=== PATIENT | female | born 1960 | race Caucasian/White ===

== ENCOUNTER 2020-04-03 11:49 | Outpatient (REF) | payer MEDICAID, SELFPAY ==
--- NOTE | 2020-04-03 11:58 | XR_ITS ---
EXAMINATION: XR FOREARM, RIGHT XR ELBOW, RIGHT XR HAND, RIGHT XR SHOULDER, RIGHT CLINICAL INFORMATION: Pain in the extremity. Anesthesia of skin. COMPARISON: None TECHNIQUE: Right shoulder, 4 views Right elbow, 3 views Right forearm, 2 views Right hand, 3 views FINDINGS: Right shoulder: Bones, joints and soft tissues have a normal.. No fracture or subluxation. No evidence of calcific tendinopathy. The visualized right lung is normal. Right elbow: Alignment is normal. Bones, joints and soft tissues have a normal appearance. No elbow joint effusion. No arthritic deformity. Incidentally noted is a small olecranon enthesophyte. Right forearm: The radius and ulna are normal. No fracture, erosion or periostitis. The soft tissues have a normal appearance. Right hand: Small osteophytes of the mildly degenerated thumb interphalangeal joint and of the fifth distal interphalangeal joint. No erosions or periostitis. Otherwise, bones, joints and soft tissues of the hand and wrist are unremarkable. XR/XR forearm RT 2V IMPRESSION: * Normal right shoulder. * Normal right elbow. * Normal right forearm. * Mild osteoarthritis. Interphalangeal joints in the right hand. No fracture or malalignment in the hand or wrist. No evidence of an inflammatory arthropathy.
--- NOTE | 2020-04-03 11:58 | XR_ITS ---
EXAMINATION: XR FOREARM, RIGHT XR ELBOW, RIGHT XR HAND, RIGHT XR SHOULDER, RIGHT CLINICAL INFORMATION: Pain in the extremity. Anesthesia of skin. COMPARISON: None TECHNIQUE: Right shoulder, 4 views Right elbow, 3 views Right forearm, 2 views Right hand, 3 views FINDINGS: Right shoulder: Bones, joints and soft tissues have a normal.. No fracture or subluxation. No evidence of calcific tendinopathy. The visualized right lung is normal. Right elbow: Alignment is normal. Bones, joints and soft tissues have a normal appearance. No elbow joint effusion. No arthritic deformity. Incidentally noted is a small olecranon enthesophyte. Right forearm: The radius and ulna are normal. No fracture, erosion or periostitis. The soft tissues have a normal appearance. Right hand: Small osteophytes of the mildly degenerated thumb interphalangeal joint and of the fifth distal interphalangeal joint. No erosions or periostitis. Otherwise, bones, joints and soft tissues of the hand and wrist are unremarkable. XR/XR elbow RT 2V IMPRESSION: * Normal right shoulder. * Normal right elbow. * Normal right forearm. * Mild osteoarthritis. Interphalangeal joints in the right hand. No fracture or malalignment in the hand or wrist. No evidence of an inflammatory arthropathy.
--- NOTE | 2020-04-03 11:59 | XR_ITS ---
EXAMINATION: XR FOREARM, RIGHT XR ELBOW, RIGHT XR HAND, RIGHT XR SHOULDER, RIGHT CLINICAL INFORMATION: Pain in the extremity. Anesthesia of skin. COMPARISON: None TECHNIQUE: Right shoulder, 4 views Right elbow, 3 views Right forearm, 2 views Right hand, 3 views FINDINGS: Right shoulder: Bones, joints and soft tissues have a normal.. No fracture or subluxation. No evidence of calcific tendinopathy. The visualized right lung is normal. Right elbow: Alignment is normal. Bones, joints and soft tissues have a normal appearance. No elbow joint effusion. No arthritic deformity. Incidentally noted is a small olecranon enthesophyte. Right forearm: The radius and ulna are normal. No fracture, erosion or periostitis. The soft tissues have a normal appearance. Right hand: Small osteophytes of the mildly degenerated thumb interphalangeal joint and of the fifth distal interphalangeal joint. No erosions or periostitis. Otherwise, bones, joints and soft tissues of the hand and wrist are unremarkable. XR/XR hand RT 2V IMPRESSION: * Normal right shoulder. * Normal right elbow. * Normal right forearm. * Mild osteoarthritis. Interphalangeal joints in the right hand. No fracture or malalignment in the hand or wrist. No evidence of an inflammatory arthropathy.
--- NOTE | 2020-04-03 12:00 | XR_ITS ---
EXAMINATION: XR FOREARM, RIGHT XR ELBOW, RIGHT XR HAND, RIGHT XR SHOULDER, RIGHT CLINICAL INFORMATION: Pain in the extremity. Anesthesia of skin. COMPARISON: None TECHNIQUE: Right shoulder, 4 views Right elbow, 3 views Right forearm, 2 views Right hand, 3 views FINDINGS: Right shoulder: Bones, joints and soft tissues have a normal.. No fracture or subluxation. No evidence of calcific tendinopathy. The visualized right lung is normal. Right elbow: Alignment is normal. Bones, joints and soft tissues have a normal appearance. No elbow joint effusion. No arthritic deformity. Incidentally noted is a small olecranon enthesophyte. Right forearm: The radius and ulna are normal. No fracture, erosion or periostitis. The soft tissues have a normal appearance. Right hand: Small osteophytes of the mildly degenerated thumb interphalangeal joint and of the fifth distal interphalangeal joint. No erosions or periostitis. Otherwise, bones, joints and soft tissues of the hand and wrist are unremarkable. XR/XR shoulder RT min 2V IMPRESSION: * Normal right shoulder. * Normal right elbow. * Normal right forearm. * Mild osteoarthritis. Interphalangeal joints in the right hand. No fracture or malalignment in the hand or wrist. No evidence of an inflammatory arthropathy.
--- NOTE | 2020-04-03 12:00 | XR_ITS ---
EXAMINATION: XR CERVICAL SPINE CLINICAL INFORMATION: Pain in right arm. Anesthesia of skin. COMPARISON: None TECHNIQUE: Cervical spine, 5 views FINDINGS: The craniocervical junction is normal. The dens is intact. The cervical vertebra have normal height and alignment. No fracture, subluxation or prevertebral soft tissue swelling. There is lack of lordotic curvature of the degenerated cervical spine. Moderate discovertebral degenerative changes of C3-C4, C4-C5, C5-C6 and C6-C7 (as manifest by narrowing of disc spaces, endplate sclerosis and osteophyte formation). There is multilevel uncovertebral joint hypertrophy, as well. The oblique views show moderate left-sided neural foraminal stenosis at C3-C4, C4-C5, C5-C6 and C6-C7. On the right, there is mild foraminal stenosis at C4-C5, and moderate foraminal stenosis at C5-C6. XR/XR cervical spine min 6V IMPRESSION: * Moderate, multilevel discovertebral degenerative change of the cervical spine, and multilevel neural foraminal stenosis. * No fracture or malalignment of the degenerated spine.
== END 2020-04-03 11:50 | disposition home or self-care (01) ==
LOC: HO.XRAY 11:49
PROVIDERS: PCP Nurse Practitioner Family; Visit Provider Nurse Practitioner Family
DX: M79.601 Pain in right arm (principal); R20.0 Anesthesia of skin
CPT/HCPCS: 72052; 73030; 73070; 73090; 73120

== ENCOUNTER 2020-07-30 18:48 | Emergency (ER) | payer MEDICAID, SELFPAY ==
--- NOTE | ~2020-07-30 | XR_ITS ---
EXAMINATION: XR CHEST CLINICAL INFORMATION: Chest pain COMPARISON: None TECHNIQUE: 2 views of the chest were obtained. FINDINGS: No significant abnormality is noted involving the heart, lungs, mediastinum, bony thorax or soft tissues. XR/XR chest 2V IMPRESSION: Unremarkable examination.
--- NOTE | ~2020-07-30 | CT_ITS ---
EXAMINATION: CT angio head neck CLINICAL INFORMATION: Neck pain. Question dissection, abscess, or aneurysm. COMPARISON: No relevant prior imaging. TECHNIQUE: Production Planning Supervisor images were obtained. A CT angiogram of the head and neck was performed in the arterial phase after the intravenous administration of 70 mL Omnipaque 350. Pre and delayed postcontrast images of the head were also obtained. MIP reconstructions were generated in multiple orientations at the acquisition workstation. Multiple three-dimensional surface rendered images and maximum intensity projection images were generated on a dedicated 3-D lab workstation. Arterial stenoses are measured in accordance with NASCET criteria or similar method if applicable. This CT examination was performed using dose optimization techniques as appropriate, including one or more of the following: Automated exposure control, iterative reconstruction, and adjustment of technique factors (mA and/or kVp) according to patient size (this includes techniques or standardized protocols for targeted exams where dose is matched to indication/reason for exam). Total exam dose-length product 2223 mGy-cm FINDINGS: Head: There is no acute intracranial hemorrhage and no abnormal extra-axial collection. Postcontrast images reveal no abnormal mass or enhancement within the intracranial compartment. No intracranial mass effect or midline shift. Lateral and third ventricles are normal. No hydrocephalus. Dhaliwal-white matter differentiation is grossly preserved and there is no evidence of acute territorial infarct. The calvarium and skull base are intact. Mastoid air cells and middle ear cavities are well aerated. There is partial opacification of the right maxillary sinus. CT angiogram neck: The aortic arch apex is normal. Origins of major aortic branches are widely patent. Common carotid arteries are normal. Small amount of eccentric plaque involves the carotid bifurcations. No stenosis of the extracranial internal carotid arteries. The cervical segments of the vertebral arteries as well as their origins are patent. CT angiogram head: There is a prominent vascular infundibulum of the right internal carotid artery at the origin of the right posterior communicating artery. Intracranial internal carotid arteries are normal. Intradural vertebral artery segments and basilar artery are normal. Visualized portions of the anterior, middle, and posterior cerebral artery complexes are normal. Other: Soft tissues of neck including the thyroid gland are normal. Lung apices are clear. No acute osseous finding. CT/CT angio head neck IMPRESSION: Unremarkable examination in that there is no stenosis of the cervical carotid or vertebral arteries. No high-grade stenosis or proximal occlusion is visualized within the intracranial vessels. No evidence of acute territorial infarct or hemorrhage. No abnormal intracranial mass or enhancement.
--- NOTE | 2020-07-30 19:08 | ECG_ITS ---
Test Reason : CHEST PAIN Blood Pressure : / mmHG Vent. Rate : 091 BPM Atrial Rate : 091 BPM P-R Int : 120 ms QRS Dur : 068 ms QT Int : 362 ms P-R-T Axes : 041 031 037 degrees QTc Int : 445 ms Normal sinus rhythm Normal ECG When compared to the previous EKG of No significant changes seen Referred By: Generic ED Physician Electronically Signed By:LEODAN BURK MD
[2020-07-30 19:11] VITALS: BP 137/78; PULSE 89; RESP 18; TEMP 36.9; O2SAT 96; BMI 35.3
[2020-07-30 19:21] LABS: MANUAL DIFF FLAG NO
[2020-07-30 19:24] LABS: Basophils Absolute Auto 0.1 X10*3/uL (0.0-0.2); Basophils Percent Auto 0.8 % (0-2); Eosinophils Absolute Auto 0.3 X10*3/uL (0.0-0.4); Eosinophils Percent Auto 4.5 % (0-4); Hemoglobin 13.3 g/dl (12.0-16.0); Imm Gran Abs Auto 0.02 X10*3/uL (0.00-0.03); Imm Gran Pct Auto 0.3 % (0.0-0.4); Lymphocytes Absolute Auto 2.3 X10*3/uL (1.2-4.9); Lymphocytes Percent Auto 30.8 % (20-40); Mean Corpuscular HGB Conc 33.3 g/dl (31.0-35.0); Mean Corpuscular Hemoglobin 31.3 pg (27.0-33.0); Mean Corpuscular Volume 94.1 fL (80-98); Mean Platelet Volume 9.6 fL (9.4-12.3); Monocytes Absolute Auto 0.5 X10*3/uL (0.1-1.2); Monocytes Percent Auto 6.1 % (2-11); Neutrophils Absolute Auto 4.3 X10*3/uL (2.0-8.3); Neutrophils Percent Auto 57.5 % (45-73); Platelet Count 319 X10*3/uL (160-400); Red Blood Count 4.25 X10*6/uL (4.20-5.50); Red Cell Distribution Width 13.1 % (11.0-16.0); White Blood Count 7.5 X10*3/uL (4.8-10.8)
[2020-07-30 19:45] LABS: Anion Gap 13 (12-20); Blood Urea Nitrogen 9 mg/dL (9-16); Carbon Dioxide 27 mmol/L (22-29); Chloride 105 mmol/L (96-108); Creatinine Clr Calc Pharmacy 77.8; Estimated Glomerular Filt Rate > 60; Glucose Random 115 mg/dL (60-115); Potassium 3.8 mmol/L (3.3-5.1); Sodium 141 mmol/L (135-145)
--- NOTE | 2020-07-30 19:47 | ED_ITS ---
HPI - Chest Pain General Chief Complaint: Chest Pain Stated Complaint: redness on neck Time Seen by Provider: 07/30/20 21:14 Source: patient Mode of arrival: ambulatory Limitations: no limitations History of Present Illness HPI narrative: Patient presents to ED for redness on left side of neck. Patient also complaining of neck pain. Patient was sent in by PCP to rule out any carotid dissection or aneurysm due to patient states sensation of choking. 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 Patient states also her recent chiropractic work of the neck about a week ago. Patient states last night having chest pain that resolved on its own. Patient states having chest pain for over 1 month. Patient denies any shortness of breath. Patient denies any chest pain on inspiration. Patient denies any swelling of lower extremities, c longterm pain, coughing up blood, fever, or chills. Patient denies any recent surgery or recent long travel. Patient denies any history of blood clot. Patient denies using any estrogen hormone. Patient not use any meth control pills. Patient presently denies any chest pain the ER Related Data Previous Rx's Medication Instructions Recorded clindamycin HCl 300 mg PO TID 10 Days #30 cap 07/31/20 naproxen 500 mg PO BID PRN #20 tab 07/31/20 Allergies Allergy/AdvReac Type Severity Reaction Status Date / Time penicillin V Allergy Unknown Unknown Verified 07/30/20 19:18 Penicillins [PENICILLINS] Allergy Unknown ANAPHYLAXIS Verified 07/30/20 19:18 Review of Systems Review of Systems: Yes all other systems are reviewed and are negative Constitutional: Constitutional: Reports as per HPI and Reports no additional constitutional complaints Eyes: Eyes: Reports as per HPI and Reports no additional eye complaints ENT: Reports system reviewed and no additional complaints, except as documented and Reports as per HPI Comments: Left-sided neck pain. Cardiovascular: Cardiovascular: Reports as per HPI, Reports no additional cardiovascular complaints and Reports chest pain (Resolved since last night) Respiratory: Respiratory: Reports as per HPI and Reports no additional respiratory complaints Gastrointestinal: Gastrointestinal: Reports as per HPI and Reports no additional gastrointestinal complaints Musculoskeletal: Musculoskeletal: Reports no additional musculoskeletal complaints and Reports as per HPI Neurologic: Reports system reviewed and no additional complaints, except as documented and Reports as per HPI Psychiatric: Psychiatric: Reports no additional psychiatric complaints and Reports as per HPI PMFSH Past Medical History Medical History (Updated 07/31/20 @ 00:19 by IRENA Bryant) Asthma Depression Hypothyroid Social History Social History Advance Directives: No Advance Directives Information Provided: Yes Physical Exam Vital Signs: Vital Signs: Last Vital Signs Temp 97.8 F 07/31/20 00:00 Pulse 83 07/31/20 00:00 Resp 15 07/31/20 00:00 BP 129/82 07/31/20 00:00 Pulse Ox 98 07/31/20 00:00 Body Mass Index 35.3 Const: General: cooperative, healthy appearing, comfortable, no acute distress, well developed, alert, awake and Physically active Orientation/consciousness: patient oriented x3 HENMT: Head: Yes normal to inspection, Yes No palpable skull fracture present, Yes normocephalic, Yes atraumatic and Yes abrasion Eyes: General: appearance normal, both eyes and all related structures Neck: Other: Neck negative for any swelling or palpable mass. Patient speaking in full sentences and not using accessory muscles. Negative for drooling. Oral cavity negative for abscess. redness on left lateral neck. Negative for lymphadenopathy. Neck: Yes normal visual inspection, Yes full ROM, Yes no lymphadenopathy, Yes no meningeal signs, Yes trachea midline and Yes supple Chest: Chest palpation & inspection: normal inspection of the chest and normal palpation of entire chest wall Resp: Effort & Inspection: normal respiratory effort and able to speak in complete sentences Auscultation: clear to auscultation bilaterally Cardio: Jugular venous distension: no JVD Heart sounds: S1 normal heart sound present and S2 normal heart sound present GI: Inspection: Yes normal to inspection and No abdominal wall ecchymosis Palpation (GI): Soft to palpation, not firm, nontender, no guarding and not rigid : General: No CVA tenderness and Yes no CVA tenderness Back/Spine/Pelvis: Back: no CVA tenderness, No CVA tenderness and No back tenderness Skin: General skin exam: no rashes or lesions noted and elasticity normal Neuro: General: patient oriented x3, no meningeal signs and CN's II-XI intact bilaterally Cranial nerves: Yes CN's II-XII intact bilaterally Extrem: Other: Lower extremity bilaterally negative for swelling, pitting edema, calf tenderness. General: Yes normal to inspection and Yes full ROM Psych: Appearance: grossly normal, well kempt and not disheveled Course Course Course Narrative: Patient presently not having any chest pain in the ED. Pain due to age will do cardiac evaluation. Not suspecting PE. Patient not having any risk factors for PE. Will send patient for CT of neck to make sure there is no dissection or aneurysm due to patient stating neck pain and history of an eurysm in the past and recent chiropractor work that was done last week. Reevaluation(s) Reevaluation #1: Patient's EKG normal and negative for STEMI. Chest x-ray negative for pneumonia. First troponin is negative. Patient presents not any distress. Patient eating food. Patient to be sent for CT angio of head and neck. Reevaluation #2: Second troponin came back negative. Patient informed to follow-up with PCP. Patient given antibiotics for mild cellulitis of neck. Wi ll not be given cephalosporin due to severe anaphylactic reaction to penicillin. Will be gentle clindamycin. Neck CT are negative for any dissection, aneurysm, or retropharyngeal abscess MDM - Chest Pain MDM Narrative Medical decision making narrative: mild Cellulitis of neck. atypical Chest pain Lab Data Result diagrams: 07/30/20 19:16 07/30/20 19:16 Labs: Lab Results 07/30/20 07/30/20 07/30/20 Range/Units 19:16 19:16 19:16 WBC 7.5 (4.8-10.8) X10*3/uL RBC 4.25 (4.20-5.50) X10*6/uL Hgb 13.3 (12.0-16.0) g/dl Hct 40.0 (37-47) % MCV 94.1 (80-98) fL MCH 31.3 (27.0-33.0) pg MCHC 33.3 (31.0-35.0) g/dl RDW 13.1 (11.0-16.0) % Plt Count 319 (160-400) X10*3/uL MPV 9.6 (9.4-12.3) fL Immature Gran % (Auto) 0.3 (0.0-0.4) % Neut % (Auto) 57.5 (45-73) % Lymph % (Auto) 30.8 (20-40) % Rutherford % (Auto) 6.1 (2-11) % Eos % (Auto) 4.5 H (0-4) % Baso % (Auto) 0.8 (0-2) % Lymph # (Auto) 2.3 (1.2-4.9) X10*3/uL [place] # (Auto) 0.5 (0.1-1.2) X10*3/uL Eos # (Auto) 0.3 (0.0-0.4) X10*3/uL Baso # (Auto) 0.1 (0.0-0.2) X10*3/uL Abs Immat Gran (auto) 0.02 (0.00-0.03) X10*3/uL Absolute Neuts (auto) 4.3 (2.0-8.3) X10*3/uL Absolute Nucleated RBC 0.000 (0.0-0.012) X10*3/uL Nucleated RBC % (auto) 0.0 (0.0-0.2) /100WBC Hold Blue Top SEE NOTE Sodium 141 (135-145) mmol/L Potassium 3.8 (3.3-5.1) mmol/L Chloride 105 (96-108) mmol/L Carbon Dioxide 27 (22-29) mmol/L Anion Gap 13 (12-20) BUN 9 (9-16) mg/dL Creatinine 0.77 (0.5-1.4) mg/dL Estim Creat Clear Calc 77.8 Estimated GFR > 60 Random Glucose 115 (60-115) mg/dL Calcium 9.0 (8.4-10.2) mg/dL Troponin I High Sens (<3.5-17.0) ng/L 07/30/20 07/30/20 Range/Units 19:16 22:49 WBC (4.8-10.8) X10*3/uL RBC (4.20-5.50) X10*6/uL Hgb (12.0-16.0) g/dl Hct (37-47) % MCV (80-98) fL MCH (27.0-33.0) pg MCHC (31.0-35.0) g/dl RDW (11.0-16.0) % Plt Count (160-400) X10*3/uL MPV (9.4-12.3) fL Immature Gran % (Auto) (0.0-0.4) % Neut % (Auto) (45-73) % Lymph % (Auto) (20-40) % Rutherford % (Auto) (2-11) % Eos % (Auto) (0-4) % Baso % (Auto) (0-2) % Lymph # (Auto) (1.2-4.9) X10*3/uL [place] # (Auto) (0.1-1.2) X10*3/uL Eos # (Auto) (0.0-0.4) X10*3/uL Baso # (Auto) (0.0-0.2) X10*3/uL Abs Immat Gran (auto) (0.00-0.03) X10*3/uL Absolute Neuts (auto) (2.0-8.3) X10*3/uL Absolute Nucleated RBC (0.0-0.012) X10*3/uL Nucleated RBC % (auto) (0.0-0.2) /100WBC Hold Blue Top Sodium (135-145) mmol/L Potassium (3.3-5.1) mmol/L Chloride (96-108) mmol/L Carbon Dioxide (22-29) mmol/L Anion Gap (12-20) BUN (9-16) mg/dL Creatinine (0.5-1.4) mg/dL Estim Creat Clear Calc Estimated GFR Random Glucose (60-115) mg/dL Calcium (8.4-10.2) mg/dL Troponin I High Sens < 3.5 < 3.5 (<3.5-17.0) ng/L ECG Data ECG #1: Interpretation: Normal sinus rhythm. Normal EKG. Nuclear 91. Pr interval 120. QRS 68. QTC 445. Negative STEMI Discharge Plan Discharge Clinical Impression: Atypical chest pain, Cellulitis Patient Disposition: Home, Self-Care Instructions: Chest Pain (ED), Cellulitis (ED) Additional Instructions: Return to the ED immediately for worsening chest pain, shortness of breath on inspiration, chest pain on inspiration, swelling of lower extremities, calf pain, coughing up blood, swelling of the neck, worsening redness of the neck, drooling, or any other concerning symptoms. Do troponins came back negative. Chest x-ray came back negative for pneumonia. Head and neck CT came back negative for retropharyngeal abscess, carotid dissection, or carotid aneurysm. EKG came back normal. Please follow-up with PCP Prescriptions: New clindamycin HCl 300 mg capsule 300 mg PO TID 10 Days Qty: 30 RF: 0 naproxen 500 mg tablet 500 mg PO BID PRN (Reason: pain) Qty: 20 RF: 0 Interventions: ED Discharge Assessment Last Done: 07/31/20 00:39 Discharge Date/Time: 07/31/20 00:40 Print Language: Tunisian
[2020-07-30 19:50] LABS: Troponin-I High Sensitivity < 3.5 ng/L (<3.5-17.0)
[2020-07-30] MEDS: iohexoL 350 MG/ML 100 ML INFUS..BTL IV (21:36)
[2020-07-30 22:04] VITALS: BP 125/86; PULSE 83; RESP 18; TEMP 36.6; O2SAT 97
[2020-07-30 23:28] LABS: Troponin-I High Sensitivity < 3.5 ng/L (<3.5-17.0)
[2020-07-31] VITALS: BP 129/82; PULSE 83; RESP 15; TEMP 36.6; O2SAT 98
== END 2020-07-31 00:40 | disposition home or self-care (01) ==
PROVIDERS: Physician Assistant; Emergency Provider Student in an Organized Health Care Education/Training Program
DX: R07.89 Other chest pain (principal); M54.2 Cervicalgia; Z79.899 Other long term (current) drug therapy
CPT/HCPCS: 36415; 70496; 70498; 71046; 80048; 84484; 85025; 93005; 96360; 99284; Q9967

== ENCOUNTER 2020-12-12 16:49 | Outpatient (REF) | payer MEDICAID, SELFPAY ==
--- NOTE | ~2020-12-12 | XR_ITS ---
EXAMINATION: XR ANKLE, RIGHT XR ANKLE, LEFT XR FOOT, RIGHT XR FOOT, LEFT CLINICAL INFORMATION: Pain and swelling. COMPARISON: Right foot radiographs dated 09/20/2012 and right ankle radiographs dated 06/28/2011. TECHNIQUE: AP, mortise, and lateral views of the right and left ankle. AP, oblique, and lateral views of the right and left foot. FINDINGS: RIGHT ANKLE: No acute fracture or dislocation. The ankle mortise is maintained. No joint space narrowing or marginal osteophytes. No osseous erosion. No abnormal soft tissue calcification. Circumferential soft tissue swelling. LEFT ANKLE: No acute fracture or dislocation. The ankle mortise is maintained. No joint space narrowing or marginal osteophytes. No osseous erosion. No abnormal soft tissue calcification. Circumferential soft tissue swelling. RIGHT FOOT: No acute fracture or dislocation. No joint space narrowing or marginal osteophytes. No osseous erosion. Small plantar and dorsal calcaneal enthesophytes. LEFT FOOT: No acute fracture or dislocation. No significant joint space narrowing or marginal osteophytes. No osseous erosion. Plantar and dorsal calcaneal enthesophytes. XR/XR ankle LT min 3V IMPRESSION: Right ankle: Circumferential soft tissue swelling without acute osseous abnormality. Left ankle: Circumferential soft tissue swelling without acute osseous abnormality. Right foot: Small plantar and dorsal calcaneal spurs, unchanged. Left foot: Small plantar and dorsal calcaneal spurs.
--- NOTE | ~2020-12-12 | XR_ITS ---
EXAMINATION: XR ANKLE, RIGHT XR ANKLE, LEFT XR FOOT, RIGHT XR FOOT, LEFT CLINICAL INFORMATION: Pain and swelling. COMPARISON: Right foot radiographs dated 09/20/2012 and right ankle radiographs dated 06/28/2011. TECHNIQUE: AP, mortise, and lateral views of the right and left ankle. AP, oblique, and lateral views of the right and left foot. FINDINGS: RIGHT ANKLE: No acute fracture or dislocation. The ankle mortise is maintained. No joint space narrowing or marginal osteophytes. No osseous erosion. No abnormal soft tissue calcification. Circumferential soft tissue swelling. LEFT ANKLE: No acute fracture or dislocation. The ankle mortise is maintained. No joint space narrowing or marginal osteophytes. No osseous erosion. No abnormal soft tissue calcification. Circumferential soft tissue swelling. RIGHT FOOT: No acute fracture or dislocation. No joint space narrowing or marginal osteophytes. No osseous erosion. Small plantar and dorsal calcaneal enthesophytes. LEFT FOOT: No acute fracture or dislocation. No significant joint space narrowing or marginal osteophytes. No osseous erosion. Plantar and dorsal calcaneal enthesophytes. XR/XR foot LT min 3V IMPRESSION: Right ankle: Circumferential soft tissue swelling without acute osseous abnormality. Left ankle: Circumferential soft tissue swelling without acute osseous abnormality. Right foot: Small plantar and dorsal calcaneal spurs, unchanged. Left foot: Small plantar and dorsal calcaneal spurs.
--- NOTE | ~2020-12-12 | XR_ITS ---
EXAMINATION: XR ANKLE, RIGHT XR ANKLE, LEFT XR FOOT, RIGHT XR FOOT, LEFT CLINICAL INFORMATION: Pain and swelling. COMPARISON: Right foot radiographs dated 09/20/2012 and right ankle radiographs dated 06/28/2011. TECHNIQUE: AP, mortise, and lateral views of the right and left ankle. AP, oblique, and lateral views of the right and left foot. FINDINGS: RIGHT ANKLE: No acute fracture or dislocation. The ankle mortise is maintained. No joint space narrowing or marginal osteophytes. No osseous erosion. No abnormal soft tissue calcification. Circumferential soft tissue swelling. LEFT ANKLE: No acute fracture or dislocation. The ankle mortise is maintained. No joint space narrowing or marginal osteophytes. No osseous erosion. No abnormal soft tissue calcification. Circumferential soft tissue swelling. RIGHT FOOT: No acute fracture or dislocation. No joint space narrowing or marginal osteophytes. No osseous erosion. Small plantar and dorsal calcaneal enthesophytes. LEFT FOOT: No acute fracture or dislocation. No significant joint space narrowing or marginal osteophytes. No osseous erosion. Plantar and dorsal calcaneal enthesophytes. XR/XR foot RT min 3V IMPRESSION: Right ankle: Circumferential soft tissue swelling without acute osseous abnormality. Left ankle: Circumferential soft tissue swelling without acute osseous abnormality. Right foot: Small plantar and dorsal calcaneal spurs, unchanged. Left foot: Small plantar and dorsal calcaneal spurs.
--- NOTE | ~2020-12-12 | XR_ITS ---
EXAMINATION: XR ANKLE, RIGHT XR ANKLE, LEFT XR FOOT, RIGHT XR FOOT, LEFT CLINICAL INFORMATION: Pain and swelling. COMPARISON: Right foot radiographs dated 09/20/2012 and right ankle radiographs dated 06/28/2011. TECHNIQUE: AP, mortise, and lateral views of the right and left ankle. AP, oblique, and lateral views of the right and left foot. FINDINGS: RIGHT ANKLE: No acute fracture or dislocation. The ankle mortise is maintained. No joint space narrowing or marginal osteophytes. No osseous erosion. No abnormal soft tissue calcification. Circumferential soft tissue swelling. LEFT ANKLE: No acute fracture or dislocation. The ankle mortise is maintained. No joint space narrowing or marginal osteophytes. No osseous erosion. No abnormal soft tissue calcification. Circumferential soft tissue swelling. RIGHT FOOT: No acute fracture or dislocation. No joint space narrowing or marginal osteophytes. No osseous erosion. Small plantar and dorsal calcaneal enthesophytes. LEFT FOOT: No acute fracture or dislocation. No significant joint space narrowing or marginal osteophytes. No osseous erosion. Plantar and dorsal calcaneal enthesophytes. XR/XR ankle RT min 3V IMPRESSION: Right ankle: Circumferential soft tissue swelling without acute osseous abnormality. Left ankle: Circumferential soft tissue swelling without acute osseous abnormality. Right foot: Small plantar and dorsal calcaneal spurs, unchanged. Left foot: Small plantar and dorsal calcaneal spurs.
== END 2020-12-12 16:50 | disposition home or self-care (01) ==
LOC: HO.XRAY 16:49
PROVIDERS: PCP Nurse Practitioner Family; Visit Provider Nurse Practitioner Family
DX: M25.571 Pain in right ankle and joints of right foot (principal); M25.572 Pain in left ankle and joints of left foot; M79.671 Pain in right foot
CPT/HCPCS: 73610; 73630

== ENCOUNTER 2021-02-19 07:51 | Outpatient (REF) | payer MEDICAID, SELFPAY ==
--- NOTE | ~2021-02-19 | XR_ITS ---
EXAMINATION: XR KNEE, BILATERAL CLINICAL INFORMATION: Pain. COMPARISON: Previous bilateral knee x-ray June 2015 TECHNIQUE: Standing AP view of both knees and lateral and sunrise view of the right knee. FINDINGS: Right knee: There is mild varus angulation. No fracture or dislocation is seen. There is medial femoral tibial joint space narrowing and osteophyte formation. There are also small osteophytes at the patellofemoral joint. This is increased from 2018 exam. There is lateral tilt of the patella. There is no joint effusion. Standing AP view of the left knee demonstrates medial femoral tibial joint space narrowing and osteophyte formation. This is increased from 2018 exam. XR/XR knee RT 2V IMPRESSION: Increasing bilateral arthritis compared to June 2017 exam.
--- NOTE | ~2021-02-19 | XR_ITS ---
EXAMINATION: XR KNEE, BILATERAL CLINICAL INFORMATION: Pain. COMPARISON: Previous bilateral knee x-ray June 2015 TECHNIQUE: Standing AP view of both knees and lateral and sunrise view of the right knee. FINDINGS: Right knee: There is mild varus angulation. No fracture or dislocation is seen. There is medial femoral tibial joint space narrowing and osteophyte formation. There are also small osteophytes at the patellofemoral joint. This is increased from 2018 exam. There is lateral tilt of the patella. There is no joint effusion. Standing AP view of the left knee demonstrates medial femoral tibial joint space narrowing and osteophyte formation. This is increased from 2018 exam. XR/XR knee standing BI IMPRESSION: Increasing bilateral arthritis compared to June 2017 exam.
== END 2021-02-19 07:52 | disposition home or self-care (01) ==
LOC: HO.HOSX 07:51
PROVIDERS: Visit Provider Physician Assistant
DX: M17.11 Unilateral primary osteoarthritis, right knee (principal); M25.571 Pain in right ankle and joints of right foot
CPT/HCPCS: 73560; 73565; 99202

== ENCOUNTER 2021-03-13 14:17 | Outpatient (REF) | payer MEDICAID, SELFPAY ==
--- NOTE | ~2021-03-13 | MM_ITS ---
EXAMINATION: MM DIAGNOSTIC DIGITAL BREAST TOMOSYNTHESIS, BILATERAL US DIAGNOSTIC ULTRASOUND BREAST, RIGHT CLINICAL INFORMATION: 60-year-old with chronic pain right axilla extending to lateral chest. No palpable breast mass or discharge. Due for yearly. No known family history breast cancer. The lifetime risk of breast cancer based on the Tyrer-Cuzick Model is 5%. COMPARISON: Mammography: 12/12/2019, 01/24/2019, 10/01/2016 TECHNIQUE: Digital breast tomosynthesis is performed in both the craniocaudal and mediolateral oblique views along with computer-aided detection (CAD). Synthesized 2D images are generated from the tomosynthesis. Additional exaggerated right CC view is provided. Ultrasound upper right breast and axillary is performed using grayscale imaging and color Doppler without and with harmonics. FINDINGS: There are scattered areas of fibroglandular density (ACR BI-RADS breast composition Category b). There is no significant mass or architectural abnormality. No developing density. Parenchymal pattern is similar to prior studies. There is no skin thickening or coarsening of the Bear's ligaments. No interval duct ectasia. No abnormal calcifications. Ultrasound demonstrates no cystic or solid mass or adenopathy. No skin thickening or edema tracking in soft tissue planes. Results are discussed with the patient at time of visit. MM/MM tomosynthesis diagnostic BI IMPRESSION: No mammographic evidence of malignancy or inflammatory changes. Unremarkable targeted right breast/axillary ultrasound. ASSESSMENT: BI-RADS 1: Negative RECOMMENDATION: 1. Patient's chronic right-sided symptoms should be managed based on the clinical impression. 2. Otherwise, routine annual screening mammography. This patient's information was entered into a reminder system with a target due date for their next mammogram.
== END 2021-03-13 14:18 | disposition home or self-care (01) ==
LOC: HO.MAMMO 14:17
PROVIDERS: Visit Provider Nurse Practitioner Family
DX: N64.4 Mastodynia (principal)
CPT/HCPCS: 76642; 77062; 77066

== ENCOUNTER → 2021-03-18 13:54 | Outpatient (BNVA) | payer MEDICAID, SELFPAY | PROVIDERS: Visit Provider Orthopaedic Surgery | DX: R20.0 Anesthesia of skin (principal); R20.2 Paresthesia of skin | CPT/HCPCS: 99202 ==

== ENCOUNTER → 2021-03-31 13:30 | Outpatient (BNVA) | payer MEDICAID, SELFPAY | PROVIDERS: PCP Nurse Practitioner Family; Referring Provider Nurse Practitioner Family; Visit Provider Surgery | DX: D17.9 Benign lipomatous neoplasm, unspecified (principal) | CPT/HCPCS: 99202 ==

== ENCOUNTER 2021-04-10 12:41 | Outpatient (REF) | payer MEDICAID, SELFPAY ==
[2021-04-10 12:46] VITALS: BP 141/80; PULSE 91; RESP 16; TEMP 36.7; O2SAT 96; BMI 35.7
[2021-04-10 13:18] VITALS: BP 155/90; PULSE 88; RESP 16; O2SAT 97
--- NOTE | 2021-04-10 14:22 | W.PM.OPN ---
Operative Note Operative Note Date of Service: 04/10/21 Narrative: Preoperative diagnosis: Lipoma right lateral thigh Postoperative diagnosis: Same Procedure: Excision of lipoma right lateral thigh Surgeon: Mane Hayden MD Distance Education Teacher: Thi Johnson PA-C Anesthesia: Lidocaine 1% with epinephrine Indications for procedure: Painful lipoma of the right lateral thigh Operative findings: Lipoma right lateral thigh Specimen: Lipoma right lateral thigh Estimated blood loss: 1 mL Complications: None Procedure details: Patient was brought to the minor surgery suite and placed in a supine position. The site of surgery was confirmed by the patient in the right lateral thigh. After assuring informed consent the skin was prepped with Betadine and draped in a sterile fashion. Local anesthesia consisting of 1% lidocaine with epinephrine was infiltrated over the lipoma which measured approximately 1 cm in diameter. Incision was then made with the scalpel and of longitudinal fashion carried out through subcutaneous tissue up to the palpable lipoma. Combination of sharp and blunt dissection was then used to excise the lipoma from the surrounding subcutaneous tissue. The specimen was passed off the table and sent to pathology for further examination. After assuring adequate hemostasis with light pressure the skin was closed using a running subcuticular 4-0 Polysorb suture. Steri-Strips and 2 x 2 gauze were then applied. The patient tolerated procedure well. The patient was discharged to home in stable condition.
== END 2021-04-10 12:42 | disposition home or self-care (01) ==
LOC: HO.MS 12:41
PROVIDERS: PCP Nurse Practitioner Family; Visit Provider Surgery
PROC: (CPT 27327; principal; 2021-04-10 13:00)
DX: D17.23 Benign lipomatous neoplasm of skin and subcutaneous tissue of right leg (principal); J45.909 Unspecified asthma, uncomplicated; E03.9 Hypothyroidism, unspecified; F32.9 Major depressive disorder, single episode, unspecified; Z79.899 Other long term (current) drug therapy; Z88.0 Allergy status to penicillin
CPT/HCPCS: 27327; 88304

== ENCOUNTER → 2021-04-21 15:17 | Outpatient (BNVA) | payer MEDICAID, SELFPAY | PROVIDERS: PCP Nurse Practitioner Family; Referring Provider Nurse Practitioner Family; Visit Provider Surgery | DX: Z48.817 Encounter for surgical aftercare following surgery on the skin and subcutaneous tissue (principal); Z87.2 Personal history of diseases of the skin and subcutaneous tissue | CPT/HCPCS: 99212 ==

== ENCOUNTER 2021-12-22 14:51 | Outpatient (REF) | payer MEDICAID, SELFPAY ==
--- NOTE | ~2021-12-22 | MM_ITS ---
EXAMINATION: BONE DENSITOMETRY CLINICAL INDICATION: Menopause. COMPARISON: Baseline BD dated 01/10/2009. TECHNIQUE: Using a Virtual[employer]ube DXA System (software version: 13.1) manufactured by [employer], dual-energy x-ray absorptiometry was performed of the lumbar spine and left hip. The images are of good technical quality. Summary results are attached. FINDINGS: AP SPINE L1-L4: Current: BMD 1.100 g/cm2, Z-score 0.3, T-score -0.7, normal, 6.5% decrease from baseline (<5% change is not significant). Baseline: BMD 1.176 g/cm2. LEFT FEMUR, NECK: Current: BMD 0.673 g/cm2, Z-score -1.6, T-score -2.6, osteoporosis. Baseline: BMD 0.821 g/cm2. LEFT FEMUR, TOTAL: Current: BMD 0.772 g/cm2, Z-score -1.2, T-score -1.9, osteopenia, 18.0% decrease from baseline (<5% change is not significant). Baseline: BMD 0.942 g/cm2. IDENTIFIED RISK FACTORS: Menopause. HISTORY OF FRACTURE: None listed. MEDICATIONS: Calcium supplements or multivitamin, vitamin D. MM/XR DEXA axial skeleton IMPRESSION: 1. DIAGNOSIS: Osteoporosis based on the lowest T-score value of -2.6 in the femoral neck applying World Health Organization criteria. 2. 10-YEAR FRACTURE RISK PREDICTION, FRAX: According to the guidelines, FRAX calculation should only be performed on patients in the osteopenia bone density category. Therefore, FRAX was not performed on this patient. 3. Treatment Recommendations: NOF guidelines recommend consideration for treatment in postmenopausal women and men age 50 and older presenting with the following: -A hip or vertebral (clinical or morphometric) fracture. -T-score less than or equal to -2.5 at the femoral neck or spine after appropriate evaluation to exclude secondary causes. -Low bone mass at the hip or spine and a 10-year fracture probability by FRAX of greater than or equal to 3% for hip fracture or greater than or equal to 20% for major osteoporotic fracture based on the [place] adapted WHO algorithm. 4. Other Recommendations: All treatment decisions require clinical judgment and consideration of individual patient factors, including patient preferences, comorbidities, previous drug use, risk factors not captured in the FRAX model (e.g. frailty, falls, vitamin D deficiency, increased bone turnover, interval significant decline in bone density) and possible under or overestimation of fracture risk by FRAX. Additional medical evaluation for secondary cause of low bone mineral density may be appropriate. FUTURE SCAN RECOMMENDATION: People with diagnosed cases of osteoporosis or at high risk for fracture should have regular bone mineral density tests. For patients eligible for Medicare, routine testing is allowed once every 2 years. The testing frequency can be increased to one year for patients who have rapidly progressing disease, those who are receiving or discontinuing medical therapy to restore bone mass, or have additional risk factors.
== END 2021-12-22 14:52 | disposition home or self-care (01) ==
LOC: HO.MAMMO 14:51
PROVIDERS: Visit Provider Nurse Practitioner Family
DX: Z13.820 Encounter for screening for osteoporosis (principal); Z78.0 Asymptomatic menopausal state
CPT/HCPCS: 77080

== ENCOUNTER 2022-03-09 16:13 | Outpatient (REF) | payer MEDICAID, SELFPAY ==
--- NOTE | ~2022-03-09 | US_ITS ---
EXAMINATION: US UPPER EXTREMITY - ARM, RIGHT CLINICAL INFORMATION: Right arm pain. COMPARISON: None TECHNIQUE: Ultrasound of both axillas was performed. FINDINGS: In the area of the patient's pain in the right axilla, no mass, fluid collection or lymphadenopathy is seen. The left axilla was scanned for comparison and there is a 2.1 x 1.1 x 1.2 cm presumed lymph node present. US/US extremity nonvascular IMPRESSION: No abnormality is seen in the area of the patient's pain in the right axilla.
== END 2022-03-09 16:14 | disposition home or self-care (01) ==
LOC: HO.US 16:13
PROVIDERS: Visit Provider Nurse Practitioner Family
DX: M79.621 Pain in right upper arm (principal)
CPT/HCPCS: 76882

== ENCOUNTER → 2022-04-29 12:54 | Outpatient (BNVA) | payer MEDICAID, SELFPAY | PROVIDERS: PCP Registered Nurse; Visit Provider Surgery Vascular Surgery | DX: I83.11 Varicose veins of right lower extremity with inflammation (principal); I89.0 Lymphedema, not elsewhere classified | CPT/HCPCS: 99212 ==

== ENCOUNTER 2022-05-25 12:54 | Outpatient (REF) | payer MEDICAID, SELFPAY | END 2022-05-25 12:55 | disposition home or self-care (01) | LOC: HO.US 12:54 | PROVIDERS: PCP Registered Nurse; Visit Provider Surgery Vascular Surgery | DX: I83.893 Varicose veins of bilateral lower extremities with other complications (principal) | CPT/HCPCS: 93970 ==

== ENCOUNTER 2022-06-01 15:55 | Outpatient (REF) | payer MEDICAID, SELFPAY ==
--- NOTE | ~2022-06-01 | US_ITS ---
EXAMINATION: US LOWER EXTREMITY VENOUS (REFLUX EXAM), BILATERAL CLINICAL INDICATION: Varicose veins COMPARISON: None. TECHNIQUE: Color flow triplex imaging and compression Doppler was performed to evaluate both the deep and the superficial systems bilaterally. To evaluate the superficial system, the examination was performed in the upright position. Color-flow Doppler ultrasound and compression ultrasound were utilized. In addition, maneuvers were utilized to demonstrate reflux. FINDINGS: 1. DEEP VENOUS ULTRASOUND OF THE RIGHT LOWER EXTREMITY: Common Femoral Vein: Compressible, normal respiratory variation and augmented flow. Femoral Vein: Compressible, normal color flow and augmentation. Popliteal Vein: Compressible, normal augmentation. Deep Reflux: There is no evidence of reflux in the deep system in either the common femoral vein or the popliteal vein. There is no evidence of a Hernandez's cyst. 2. SUPERFICIAL ULTRASOUND WITH DOPPLER OF RIGHT LOWER EXTREMITY: GREAT SAPHENOUS VEIN: Saphenofemoral Junction: 0.6 cm; Reflux: 0 ms Proximal Thigh: 0.6 cm; Reflux: 0 ms Mid Thigh: 0.4 cm; Reflux: 0 ms Above Knee: 0.3 cm; Reflux: 0 ms At Knee: 0.3 cm; Reflux: 0 ms Below Knee: 0.3 cm; Reflux: 0 ms Mid Calf: 0.3 cm; Reflux: 0 ms Ankle: 0.3 cm; Reflux: 0 ms DUPLICATED MEDIAL GREAT SAPHENOUS VEIN: Diameter: None Imaged Reflux: NA DUPLICATED LATERAL GREAT SAPHENOUS VEIN: Proximal: 0.4 cm; Reflux: 0 ms Distal: 0.2 cm; Reflux: 0 ms SMALL SAPHENOUS VEIN: Proximal: 0.3 cm; Reflux: 0 ms Distal: 0.2 cm; Reflux: 0 ms VEIN OF GIACOMINI: None Imaged. PERFORATORS: Location: Multiple mid calf perforators Size: 0.2-0.3 cm Reflux: NA VARICOSITIES: Location: Proximal thigh Size: 0.4 cm Reflux: NA 3. DEEP VENOUS ULTRASOUND OF THE LEFT LOWER EXTREMITY: Common Femoral Vein: Compressible, normal respiratory variation and augmented flow. Femoral Vein: Compressible, normal color flow and augmentation. Popliteal Vein: Compressible, normal augmentation. Deep Reflux: There is no evidence of reflux in the deep system in either the common femoral vein or the popliteal vein. There is no evidence of a Hernandez's cyst. 4. SUPERFICIAL ULTRASOUND WITH DOPPLER OF LEFT LOWER EXTREMITY: GREAT SAPHENOUS VEIN: Saphenofemoral Junction: 0.7 cm; Reflux: 0 ms Proximal Thigh: 0.5 cm; Reflux: 0 ms Mid Thigh: 0.3 cm; Reflux: 0 ms Above Knee: 0.2 cm; Reflux: 0 ms At Knee: 0.3 cm; Reflux: 0 ms Below Knee: 0.3 cm; Reflux: 0 ms Mid Calf: 0.3 cm; Reflux: 0 ms Ankle: 0.3 cm; Reflux: 0 ms DUPLICATED MEDIAL GREAT SAPHENOUS VEIN: Diameter: None Imaged Reflux: NA DUPLICATED LATERAL GREAT SAPHENOUS VEIN: Proximal: 0.4 cm; Reflux: 0 ms Distal: 0.3 cm; Reflux: 0 ms SMALL SAPHENOUS VEIN: Proximal: 0.2 cm; Reflux: 0 ms Distal: 0.2 cm; Reflux: 0 ms VEIN OF GIACOMINI: None Imaged. PERFORATORS: Location: Multiple calf perforators Size: 0.2-0.3 cm Reflux: 3176ms in the customer engineer 34 cm from the heel VARICOSITIES: Location: Proximal thigh and distal calf Size: 0.3 cm Reflux: NA US/US venous duplex LE BI IMPRESSION: 1. No evidence of DVT or deep venous reflux. 2. No significant reflux in the bilateral great saphenous and small saphenous veins. 3. Multiple refluxing perforators in the left calf.
--- NOTE | ~2022-06-01 | MM_ITS ---
EXAMINATION: MM SCREENING DIGITAL BREAST TOMOSYNTHESIS, BILATERAL CLINICAL INFORMATION: Screening. Asymptomatic. The lifetime risk of breast cancer based on the Tyrer-Cuzick Model is 4.3%. COMPARISON: Mammography: March 13, 2021 and studies dating back to May 02, 2015 TECHNIQUE: Digital breast tomosynthesis is performed in both the craniocaudal and mediolateral oblique views along with computer-aided detection (CAD). Synthesized 2D images are generated from the tomosynthesis. FINDINGS: There are scattered areas of fibroglandular density (ACR BI-RADS breast composition Category b). There are no significant masses, abnormal calcifications, or other abnormalities. MM/MM tomosynthesis screening BI IMPRESSION: No significant changes from prior exam. ASSESSMENT: BI-RADS 1: Negative RECOMMENDATION: Routine annual mammography screening. This patient's information was entered into a reminder system with a target due date for their next mammogram.
== END 2022-06-01 15:56 | disposition home or self-care (01) ==
LOC: HO.MAMMO 15:55
PROVIDERS: Visit Provider Registered Nurse
DX: Z12.31 Encounter for screening mammogram for malignant neoplasm of breast (principal)
CPT/HCPCS: 77063; 77067

== ENCOUNTER → 2022-06-15 14:57 | Outpatient (BNVA) | payer MEDICAID, SELFPAY | PROVIDERS: PCP Registered Nurse; Visit Provider Surgery Vascular Surgery | DX: I83.11 Varicose veins of right lower extremity with inflammation (principal) | CPT/HCPCS: 99212 ==

== ENCOUNTER 2022-08-30 10:53 | Outpatient (REF) | payer MEDICAID, SELFPAY ==
[2022-08-30 13:22] LABS: Cholesterol 314 mg/dL; HDL Cholesterol 62 mg/dL; LDL Cholesterol Calculated 230 mg/dl; Triglycerides 110 mg/dL
[2022-08-30 13:41] LABS: Thyroid Stimulating Hormone 4.79 uIU/mL (0.32-4.0)
== END 2022-08-30 10:54 | disposition home or self-care (01) ==
LOC: HO.LAB 10:53
PROVIDERS: PCP Registered Nurse; Visit Provider Registered Nurse
DX: E78.5 Hyperlipidemia, unspecified (principal)
CPT/HCPCS: 36415; 80061; 84443

== ENCOUNTER 2022-09-06 11:01 | Outpatient (REF) | payer MEDICAID, SELFPAY ==
--- NOTE | ~2022-09-06 | XR_ITS ---
EXAMINATION: Bilateral foot x-ray CLINICAL INFORMATION: Pain COMPARISON: Previous x-rays November 2020 TECHNIQUE: 3 views of each foot FINDINGS: Right: Bone alignment is normal. No fracture or dislocation. Normal joint spaces. Small perineal ossicle. Small calcaneal spurs. Left: Bone alignment is normal. No fracture or dislocation. Normal joint spaces. Small perineal ossicle. Small calcaneal spurs. XR/XR foot RT 2V IMPRESSION: Small calcaneal spurs.
--- NOTE | ~2022-09-06 | XR_ITS ---
EXAMINATION: Bilateral foot x-ray CLINICAL INFORMATION: Pain COMPARISON: Previous x-rays November 2020 TECHNIQUE: 3 views of each foot FINDINGS: Right: Bone alignment is normal. No fracture or dislocation. Normal joint spaces. Small perineal ossicle. Small calcaneal spurs. Left: Bone alignment is normal. No fracture or dislocation. Normal joint spaces. Small perineal ossicle. Small calcaneal spurs. XR/XR foot LT min 3V IMPRESSION: Small calcaneal spurs.
== END 2022-09-06 11:02 | disposition home or self-care (01) ==
LOC: HO.XRAY 11:01
PROVIDERS: PCP Registered Nurse; Visit Provider Registered Nurse
DX: M79.671 Pain in right foot (principal); R22.42 Localized swelling, mass and lump, left lower limb
CPT/HCPCS: 73620; 73630

== ENCOUNTER → 2022-09-21 13:58 | Outpatient (BNVA) | payer MEDICAID, SELFPAY | PROVIDERS: PCP Registered Nurse; Referring Provider Registered Nurse; Visit Provider Internal Medicine | DX: Z01.818 Encounter for other preprocedural examination (principal) | CPT/HCPCS: 99202 ==

== ENCOUNTER 2023-08-08 11:53 | Outpatient (REF) | payer OTHER, SELFPAY ==
[2023-08-08 12:02] LABS: MANUAL DIFF FLAG NO
[2023-08-08 12:35] LABS: Basophils Absolute Auto 0.1 X10*3/uL (0.0-0.2); Basophils Percent Auto 0.7 % (0-2); Eosinophils Absolute Auto 0.3 X10*3/uL (0.0-0.4); Eosinophils Percent Auto 3.6 % (0-4); Hemoglobin 14.4 g/dl (12.0-16.0); Imm Gran Abs Auto 0.02 X10*3/uL (0.00-0.03); Imm Gran Pct Auto 0.3 % (0.0-0.4); Lymphocytes Absolute Auto 2.6 X10*3/uL (1.2-4.9); Lymphocytes Percent Auto 34.3 % (20-40); Mean Corpuscular HGB Conc 33.5 g/dl (31.0-35.0); Mean Corpuscular Volume 92.7 fL (80.0-98.0); Mean Platelet Volume 9.8 fL (9.4-12.3); Monocytes Absolute Auto 0.5 X10*3/uL (0.1-1.2); Monocytes Percent Auto 6.3 % (2-11); Neutrophils Absolute Auto 4.1 x10*3/uL (2.0-8.3); Neutrophils Percent Auto 54.8 % (45-73); Platelet Count 354 X10*3/uL (160-400); Red Blood Count 4.64 X10*6/uL (4.20-5.50); Red Cell Distribution Width 12.8 % (11.0-16.0); White Blood Count 7.5 X10*3/uL (4.8-10.8)
[2023-08-08 13:04] LABS: Cholesterol 243 mg/dL (<200); HDL Cholesterol 56 mg/dL (>40); LDL Cholesterol Calculated 155 mg/dL (<100); Triglycerides 160 mg/dL (<150)
[2023-08-08 13:22] LABS: Thyroid Stimulating Hormone 8.02 uIU/mL (0.32-4.0)
== END 2023-08-08 11:54 | disposition home or self-care (01) ==
LOC: HO.LAB 11:53
PROVIDERS: PCP Registered Nurse; Visit Provider Registered Nurse
DX: R26.81 Unsteadiness on feet (principal)
CPT/HCPCS: 36415; 80061; 84443; 85025

== ENCOUNTER 2023-08-12 14:39 | Outpatient (REF) | payer OTHER, SELFPAY | END 2023-08-12 14:40 | disposition home or self-care (01) | LOC: HO.MAMMO 14:39 | PROVIDERS: PCP Registered Nurse; Visit Provider Registered Nurse | DX: Z12.31 Encounter for screening mammogram for malignant neoplasm of breast (principal) | CPT/HCPCS: 77063; 77067 ==

== ENCOUNTER → 2023-08-12 15:30 | Outpatient (BNV) | payer OTHER, SELFPAY | PROVIDERS: PCP Registered Nurse; Visit Provider Radiology Diagnostic Radiology | DX: Z12.31 Encounter for screening mammogram for malignant neoplasm of breast (principal) | CPT/HCPCS: 77063; 77067 ==

== ENCOUNTER 2023-08-25 14:00 | Outpatient (AMB) | payer OTHER, SELFPAY ==
--- NOTE | 2023-08-25 14:12 | MHC.OFFVIS ---
Vital Signs 08/25/23 14:13 Height 5 ft Weight 187 lb 13.341 oz BMI 36.7 BP 130/82 Blood Pressure Location Lt brachial Position Sitting Pulse 88 Intake Visit Reasons: r/s self ref/dr fox/heart fluttering Cake Puncher Required: No Accompanied by: Self / Same As Patient Allergies Penicillins [PENICILLINS] Allergy (Unknown, Verified 03/01/23 14:41) ANAPHYLAXIS Medication List - Last Reconciled 08/25/23 by Lionel Aleman MD albuterol sulfate 90 mcg/actuation (Ventolin HFA) 2 puffs inhalation Q4H PRN atorvastatin 20 mg PO QAM blood pressure test kit-large As directed cholecalciferol (vitamin D3) 25 mcg PO QAM levothyroxine 112 mcg PO DAILY lidocaine 5% 1 patch topical QAM naproxen 500 mg PO BID PRN quetiapine 25 mg PO BEDTIME trazodone 150 mg PO BEDTIME PRN HPI Comments Details: This is a cardiology consultation regarding various symptoms including chest pain and palpitations. No previous cardiac history. No history of any coronary artery disease or myocardial infarction or cardiomyopathy. She states that she gets episodes of pain across the chest and sometimes in the axillary area as well. No clear exertional patterns. She also gets sensations of heart racing. [facility] Medical History Depression Asthma Hypothyroid Surgical History History of esophagogastroduodenoscopy (EGD) Hx of colonoscopy History of excision of mass History of umbilical hernia repair History of arthroscopic knee surgery Family History (Updated 08/25/23 @ 14:30 by Lionel Aleman MD) Mother Asthma Father History of open heart surgery Social History Alcohol intake: never Patient Tobacco Use Status: Never used Tobacco Current occupational status: disabled Current occupation: rt hand Review of Systems Const Denies chills, Denies fatigue, Denies fever(s), Denies frequent falls, Denies weakness, Denies weight gain and Denies weight loss ENT Denies dizziness Card Denies chest pain, Denies leg edema, Denies lightheadedness, Denies palpitations, Denies dyspnea, Denies dyspnea on exertion and Denies orthopnea Resp Denies cough, Denies dyspnea and Denies dyspnea on exertion GI Denies bloating and Denies change in bowel habits Musc Denies muscle weakness, Denies numbness and Denies tingling Neuro Denies dizziness, Denies frequent falls, Denies numbness, Denies tingling and Denies weakness Endo Denies fatigue and Denies palpitations Physical Exam Vital Signs: Last Vital Signs Pulse 88 08/25/23 14:13 BP 130/82 08/25/23 14:13 BMI result Body Mass Index 36.7 Const General: comfortable and no acute distress Orientation/consciousness: patient oriented x3 HEENT Other: Unremarkable Head: Yes normal to inspection Neck Neck: Yes normal visual inspection Chest Chest palpation & inspection: normal inspection of the chest Resp Auscultation: clear to auscultation bilaterally Cardio Palpation: normal PMI Heart sounds: S1 normal heart sound present, S2 normal heart sound present, no gallops, no murmurs and no rubs GI Palpation (GI): Soft to palpation Back/Spine/Pelvis Other: unremarkable Skin General skin exam: no rashes or lesions noted Neuro General: patient oriented x3 Extrem General: Yes normal to inspection Psych Mental Status: mental status grossly normal Office Procedures EKG Details: EKG with sinus rhythm at 88/Min; no significant ST-T changes and otherwise unremarkable[place]. [id number], Complete Assessment & Plan Assessment & Plan (1) Heart palpitations: Code(s): R00.2 - Palpitations Category: Medical Plan: Could be supraventricular or ventricular ectopy. Other atrial arrhythmias also possible. Obtain Holter monitor. (2) Precordial chest pain: Code(s): R07.2 - Precordial pain Category: Medical Plan: Atypical sounding pain but it seems that is the strong family history in her father who apparently underwent multiple open heart surgeries. Obtain myocardial perfusion imaging study. She states she has knee pain and can not walk. Hence do pharmacological stress with Lexiscan. Echocardiogram. Plan Follow-up after the above. Orders: Orders ECG 7 day holter monitor Today R00.2 - Palpitations NM cardiolite stress test Today R07.2 - Precordial pain CA echo transthoracic complete Today R07.2 - Precordial pain CA lexiscan stress w shital Today I20.9 - Angina pectoris, unspecified, R07.2 - Precordial pain Coding Level of Care Code New Pt Level 4 (14997) Diagnoses Heart palpitations R00.2 Precordial chest pain R07.2 CPT Codes EKG - CPT: 13010-[id number], Complete ([id number])
[2023-08-25 14:13] VITALS: BP 130/82; PULSE 88; BMI 36.7
== END 2023-08-25 14:37 | disposition home or self-care (01) ==
PROVIDERS: PCP Registered Nurse; Visit Provider Internal Medicine
DX: R00.2 Palpitations (principal); R07.2 Precordial pain
CPT/HCPCS: 93010; 99204

== ENCOUNTER → 2023-08-25 14:00 | Outpatient (BNVA) | payer OTHER, SELFPAY | PROVIDERS: PCP Registered Nurse; Visit Provider Internal Medicine | DX: R00.2 Palpitations (principal); R07.2 Precordial pain | CPT/HCPCS: 93005; 99202 ==

== ENCOUNTER 2023-09-14 14:56 | Outpatient (REF) | payer OTHER, SELFPAY ==
--- NOTE | ~2023-09-14 | MR_ITS ---
EXAMINATION: MR BRAIN WITHOUT CONTRAST CLINICAL INFORMATION: Worsening headache and dizziness COMPARISON: None TECHNIQUE: Multiplanar multisequence MR imaging of the brain was obtained without intravenous contrast. FINDINGS: There is no acute infarct on diffusion-weighted imaging. There is no intracranial hemorrhage on iron-sensitive imaging. No extra-axial collection or mass effect/herniation. Few scattered periventricular and deep white matter T2 FLAIR hyperintensities, likely reflecting sequela of chronic microvascular ischemia and within normal limits for age. No hydrocephalus. The ventricles are normal in morphology and size. The major flow voids at the skull base are preserved. The midline structures are normal. The cerebellar tonsils are normally positioned. The craniocervical junction is normal. Marrow signal is within normal limits. The visualized soft tissues are without significant abnormality. No signal abnormality within the paranasal sinuses or within the mastoid air cells. MR/MR head/brain wo con IMPRESSION: Unremarkable noncontrast MRI of the brain.
== END 2023-09-14 14:57 | disposition home or self-care (01) ==
LOC: HO.MRI 14:56
PROVIDERS: PCP Registered Nurse; Visit Provider Registered Nurse
DX: R51.9 Headache, unspecified (principal); G89.29 Other chronic pain; R42 Dizziness and giddiness
CPT/HCPCS: 70551

== ENCOUNTER → 2023-10-10 09:01 | Outpatient (REF) | payer OTHER, SELFPAY ==
--- NOTE | ~2023-10-10 | NM_ITS ---
Lexiscan Myocardial perfusion study Indication: Chest pain, assess for coronary disease and ischemia Technique: The patient was brought in for a Lexiscan perfusion study on 10/10/2023 and was injected 0.4 mg of Lexiscan intravenously. Within a minute of this injection 30 mCi of sestamibi was given intravenously. Images were obtained using the SPECT gamma camera interlaced with the gating device. Images were obtained in supine position. Resting perfusion study was performed on 10/12/2023. Patient was administered 30 mCi of sestamibi intravenously at rest. Images were then obtained in supine position. Images were processed with the software and compared side to side in short axis, horizontal long axis and vertical long axis views. Total DLP 94mGy-cm. Findings: Raw acquisition reviewed. The stress perfusion study showed no significant perfusion abnormality. Both uncorrected as well as CT attenuation corrected images were reviewed. The gated study shows normal LV systolic function with calculated LVEF of 69%. LV cavity is normal in size. The gated study shows normal wall thickening and contraction of segments. Resting study shows no significant perfusion abnormality. Gating at rest reveals normal wall motion with ejection fraction at 54%. The findings are consistent with no clear reversible or fixed perfusion abnormality. NM/NM cardiolite stress test Impression: 1. Myocardial perfusion imaging study shows probably normal myocardial perfusion. 2. Gated LVEF is 69% during stress and 54% during rest. 3. Transient ischemic dilatation not present. EKG component of the test reported separately.
--- NOTE | 2023-10-10 09:05 | CA_ITS ---
Acquisition Time: 2023-10-10 10:51:38 Total Exercise Time: 00:02:00 Test Indications: CP Medications: SEE H Protocol: LEXISCAN Max HR: 110 BPM 70% of Pred: 155 BPM Max BP: 152/088 mmHG Max Work Load: 1.0 METS Pharmacological stress test with Lexiscan injection, while sitting and kicking her legs, without anginal symptoms, with isolated PACs and PVCs, with normotensive response to injection, with nondiagnostic EKG for ischemia. In recovery she repoorted nausea that was treated with amiophylline 75mg IVP and caffinated soda with resolution of symptom. Nuclear images pending. Test reviewed with Dr Dillard Referred By: Lionel Aleman Overread By: NAVEED VELASQUEZ
--- NOTE | 2023-10-10 09:05 | CA_ITS ---
Transthoracic Echocardiogram Patient (Last, First, Middle): Suha Buck, Gender: Female Date of : 1960 Age: 63 Procedure Date: 10/10/2023 Procedure Type: Transthoracic Echocardiogram Location: OP Height: 152.4 cm Weight: 81.19 kg BSA: 1.78 m2 Heart Rate: bpm BP: 130 / 80 mmHg Flour Mixer Helper: Referring MD: Lionel Aleman MD Symptoms: R07.2 - Precordial pain Study Quality: Fair ECG Rhythm: Sinus Conclusions: - The left ventricular systolic function is normal. The visually estimated ejection fraction is between 65-70%. - No obvious valvular pathology seen on this study. Findings Left Ventricle Normal left ventricular cavity size. There is normal left ventricular wall thickness. The left ventricular systolic function is normal. The visually estimated ejection fraction is between 65-70%. There is no evidence of regional wall motion abnormalities. Diastolic function is normal for age. Right Ventricle Normal right ventricular cavity size and systolic function. Atria Both atria are normal in size. Aortic Valve The aortic valve was not well visualized. There is no aortic valve stenosis. There is no aortic valve regurgitation. Mitral Valve The mitral valve appears normal. There is trace mitral valve regurgitation. There is no mitral valve stenosis. Pulmonic Valve The pulmonic valve is likely normal. Tricuspid Valve Normal tricuspid valve structure. There is mild tricuspid valve regurgitation. There is no evidence of pulmonary hypertension. Great Vessels The asc aorta is normal in size. Venous The inferior vena cava is normal in size and collapses greater than 50% with inspiration. Pericardium/Pleural There is no evidence of pericardial effusion. Prior Study Comparison No prior study available for comparison. Recommendations, Care & Conclusions No obvious valvular pathology seen on this study. Measurements 2D Linear Measurements Ao Root: 3.00 2.1-3.5 cm LVOT Diam: 2.00 3.0+(-)1.3 cm 2D Systolic Function EF 4C: 69.30 >55% EF 2C: 72.80 >55% EF BiP: 70.00 >55% Mitral Valve MV VTI: 0.28 MV Pk Alverto: 1.09 MV Mn Alverto: 0.76 MV Pk Grad: 5.00 MV Mn Grad: 3.00 MV Pk E: 1.08 MV PK A: 1.14 MV Decel Time: 152.00 E/A: 0.90 E'Lateral: 9.36 E'Medial: 9.79 E/E' Med: 11.00 E/E' Lat: 11.50 PHT: 45.00 MVA PHT: 4.89 MVA Continuity: 2.29 Decel [place]: 7.06 Aortic Valve AoV Pk Alverto: 1.42 AoV Mn Alverto: 0.88 AoV VTI: 0.34 AoV Pk Grad: 8.00 Aov Mn Grad: 4.00 KESHAV Cont.VTI: 1.85 LVOT LVOT Pk Alverto: 0.82 LVOT Mn Alverto: 0.56 LVOT VTI: 0.20 LVOT Pk Grad: 3.00 LVOT Mn Grad: 2.00 LVOT Diam: 2.00 LVOT Area: 3.14 Diastolic Function MV Pk E: 1.08 MV Pk A: 1.14 E/A: 0.90 E'Medial: 9.79 E/E' Med: 11.00 E' Laterial: 9.36 E/E' Lat: 11.50 Right Ventricle TAPSE (mm): 25.00 TVS' Alverto: 12.00 Tricuspid Valve TR Pk Alverto: 2.40 TR Pk Grad: 23.00 RA Press: 3.00 RVSP: 26.00 Great Vessels Aorta Ao Root-2D: 3.00 2.0-3.7 cm Ao Asc: 2.80 2.1-3.4 cm Pulmonary Valve PV Pk Alverto: 0.92 Peak PV Grad: 3.00 Updated in Other Vendor System with Status of Final Lionel Aleman MD electronically signed on 10/10/2023 1:55:28 PM with status of Final
== END ==
LOC: HO.CARD 09:01
PROVIDERS: PCP Registered Nurse; Visit Provider Internal Medicine
DX: R07.2 Precordial pain (principal); I20.9 Angina pectoris, unspecified; R00.2 Palpitations
CPT/HCPCS: 78452; 93017; 93306; A9500; J0280; J2785

== ENCOUNTER → 2023-10-10 09:05 | Outpatient (BNV) | payer OTHER, SELFPAY | PROVIDERS: PCP Registered Nurse; Visit Provider Internal Medicine | DX: R07.9 Chest pain, unspecified (principal) | CPT/HCPCS: 78452; 93016; 93018; 93350 ==

== ENCOUNTER 2023-10-28 16:14 | Outpatient (REF) | payer OTHER, SELFPAY ==
--- NOTE | ~2023-10-28 | XR_ITS ---
EXAMINATION: XR WRIST, LEFT CLINICAL INFORMATION: Pain in left wrist after fall COMPARISON: None available. TECHNIQUE: PA, lateral, and oblique views of the left wrist. FINDINGS: The bones and soft tissues are normal. No fracture. Alignment is anatomic with normal joint spaces. No erosions or abnormal soft tissue calcifications. XR/XR wrist LT 2V IMPRESSION: No fracture seen.
--- NOTE | ~2023-10-28 | XR_ITS ---
EXAMINATION: XR HIP, RIGHT CLINICAL INFORMATION: Chronic pain in the right groin COMPARISON: None available. TECHNIQUE: Two views of the right hip. FINDINGS: No fracture. Alignment is anatomic. Hip joint space is maintained. Soft tissues are unremarkable. XR/XR hip RT min 2V IMPRESSION: Normal right hip.
== END 2023-10-28 16:15 | disposition home or self-care (01) ==
LOC: HO.XRAY 16:14
PROVIDERS: PCP Registered Nurse; Visit Provider Registered Nurse
DX: M25.551 Pain in right hip (principal); M25.552 Pain in left hip
CPT/HCPCS: 73100; 73502

== ENCOUNTER 2023-12-06 15:05 | Outpatient (AMB) | payer OTHER, SELFPAY ==
--- NOTE | 2023-12-06 15:39 | A.OFFVIS_ITS ---
Vital Signs 12/06/23 15:39 Handedness Right Intake Visit Reasons: New Prob- Paronychia of RT finger of RT hand Intake Note: Suha is a 63 year old right hand dominant female who presents today for a new problem visit with complaints right hand index finger pain. Patient expresses this started in 2015. She feels like her finger has no blood flow in the morning. Numbness on the distal aspect of her index finger. She says she got her nails done in 2016 when she heard a loud snap in her index finger, when she got home she removed her nails due having extreme burning pain. She says she feels like the office machine technician shot something into her finger. Her nail grows inward and she claims she has to scrap it out. Takes extra strength Tylenol but finds very little relief. Allergies Penicillins [PENICILLINS] Allergy (Unknown, Verified 12/06/23 15:47) ANAPHYLAXIS HPI HPI New Prob- Paronychia of RT finger of RT hand: Details: Patient is a 63-year-old female who presents for evaluation of chronic ingrowing of nail of index finger of right hand, ongoing since approximately 2015. Patient reports that, at that time, she was getting a manicure, and she felt that the office machine technician shot something into my finger . The patient reports that, since that time, she has been experiencing significant discomfort with associated ingrowing of the fingernail on the radial side of the right index finger. Patient reports that she has no active ingrowing of the fingernail at this time, but this is due to the fact that she ?shaved it out?. What type Takes care of ingrown fingernails For ingrown fingernails For ingrown fingernails The patient reports that she also has noticed a dark stripe forming on or under her nail of her right index finger since approximately that time. The patient also reports that she has wrist pain ongoing since approximately this time, but she feels that this is due to the pain she experiences in her finger. The patient reports that she does also experience numbness and tingling in the right hand, particularly in her right index finger, that is intermittent, but daily, worse at night and early in the morning. Patient has no other acute complaints or concerns at this time. [facility] Medical History Depression Asthma Hypothyroid Surgical History History of esophagogastroduodenoscopy (EGD) Hx of colonoscopy History of excision of mass History of umbilical hernia repair History of arthroscopic knee surgery Family History Mother Asthma Father History of open heart surgery Social History Alcohol intake: never Patient Tobacco Use Status: Never used Tobacco Current occupational status: disabled Current occupation: rt hand Physical Exam Extrem Other: Patient is alert, oriented, and in no acute distress. Neuro: Median, ulnar, radial nerves motor and sensory intact and sensation is normal to the tips of all digits. Vascular: Cap refill brisk Pain: Patient reports mild tenderness to palpation of the right wrist No tenderness to palpation anywhere else on the right hand ROM: Range of motion of the right hand and wrist full and intact Patient is able to make a closed fist With the finger cross Skin: No lacerations or abrasions. Noted dark stripes on the fingernails of both the right index finger and left middle finger. General: No ecchymosis, erythema, or evidence of infection. Positive Tinel's test at the wrist on the right. Psych: Appears grossly normal Affect normal Attitude cooperative Assessment & Plan Assessment & Plan (1) Ingrown fingernail: Code(s): L60.0 - Ingrowing nail Category: Medical (2) Discoloration of nail: Code(s): L60.8 - Other nail disorders Category: Medical (3) Numbness and tingling in right hand: Code(s): R20.0 - Anesthesia of skin; R20.2 - Paresthesia of skin Category: Medical Plan 1. Discoloration of right index finger and left middle finger 2. History of ingrown nail in the right index finger Patient is informed that there is no evidence of active ingrown fingernail of the right index finger, or any signs of active infection in this area Patient is referred to [facility] for evaluation of darken stripes on fingernails to rule out any potentially dangerous etiologies Patient is also instructed that she should talk to the tank storage supervisor about this ingrown nail, and to discuss any treatment options with them Patient is amenable to this plan 3. Numbness and tingling of right hand Ongoing for approximately 1-2 years Symptoms intermittent, but daily, worse at night early in the morning History and physical exam findings potentially suggestive of median nerve pathology of the right wrist At this time, patient will be referred for nerve conduction study to assess the health of the nerves of the right hand and wrist Patient is amenable to this plan Patient will follow-up after nerve conduction study for discussion of potential treatment options, sooner with any acute concerns Orders: Orders NE nerve conduction velocity Today R20.0 - Anesthesia of skin, R20.2 - Paresthesia of skin NE electromyogram (EMG) Today R20.0 - Anesthesia of skin, R20.2 - Paresthesia of skin Referrals Dermatology Referral L60.0 - Ingrowing nail, L60.8 - Other nail disorders Coding Level of Care Code New Pt Level 3 (33694) Diagnoses Ingrown fingernail L60.0 Discoloration of nail L60.8 Numbness and tingling in right hand R20.0; R20.2
== END 2023-12-06 16:37 | disposition home or self-care (01) ==
PROVIDERS: PCP Registered Nurse
DX: L60.0 Ingrowing nail (principal); L60.8 Other nail disorders; R20.0 Anesthesia of skin; R20.2 Paresthesia of skin
CPT/HCPCS: 99203

== ENCOUNTER → 2023-12-06 15:05 | Outpatient (BNVA) | payer OTHER, SELFPAY | PROVIDERS: PCP Registered Nurse | DX: L60.0 Ingrowing nail (principal); L60.8 Other nail disorders; R20.0 Anesthesia of skin; R20.2 Paresthesia of skin | CPT/HCPCS: 99202 ==

== ENCOUNTER 2023-12-22 14:57 | Outpatient (AMB) | payer OTHER, SELFPAY ==
--- NOTE | 2023-12-22 15:12 | A.OFFVIS_ITS ---
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 Previously seen by myself in 2012 for hypothyroidism . Currently using levothyroxine 112 mcg. Not Takes it consistently without food without the medications. Denies fatigue, weight gain, cold intolerance, dry skin, hair loss, constipation. There is no hx of hyperlipidemia . Denies obstructive sx of goiter . Denies consuming any kelp or seaweed. Denies taking amiodarone. Biotin: No Labs: [facility] Medical History (Updated 12/22/23 @ 15:18 by Valentin Sifuentes MD) Depression Asthma Hypothyroid Surgical History History of esophagogastroduodenoscopy (EGD) Hx of colonoscopy History of excision of mass History of umbilical hernia repair History of arthroscopic knee surgery Family History Mother Asthma Father History of open heart surgery Social History Alcohol intake: never Patient Tobacco Use Status: Never used Tobacco Current occupational status: disabled Current occupation: rt hand Physical Exam Vital Signs: Last Vital Signs Pulse 76 12/22/23 15:14 BMI result Body Mass Index 37.0 Const Other: Thyroid gland is normal size weighs about 15 g. There are no thyroid nodules palpated. 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 She appears to be clinically euthyroid but has elevated TSH. Plan is to to have the patient take the levothyroxine 112 mcg consistently and recheck TSH and free T4 in 6 weeks time. Also, the patient will take vitamin D3 2000 IU per day and will check 25 hydroxy vitamin-D in 2 months. Lastly, referred the patient to resource coordinator for weight loss Orders: Orders Vitamin D 25-OH Total 2 Months E03.9 - Hypothyroidism, unspecified Free T4 (Free Thyroxine) 2 Months E03.9 - Hypothyroidism, unspecified Thyroid Stimulating Hormone 2 Months E03.9 - Hypothyroidism, unspecified Referrals Nutrition/Dietitian Referral R63.5 - Abnormal weight gain Medications: New cholecalciferol (vitamin D3) 50 mcg PO DAILY 30 caps 4RF Coding Level of Care Code Est Pt Level 3 (08246) Diagnoses Hypothyroid E03.9
[2023-12-22 15:14] VITALS: PULSE 76; BMI 37.0
== END 2023-12-22 15:48 | disposition home or self-care (01) ==
PROVIDERS: PCP Registered Nurse; Visit Provider Internal Medicine Endocrinology, Diabetes & Metabolism
DX: E03.9 Hypothyroidism, unspecified (principal)
CPT/HCPCS: 99213

== ENCOUNTER → 2023-12-22 14:57 | Outpatient (BNVA) | payer OTHER, SELFPAY | PROVIDERS: PCP Registered Nurse; Visit Provider Internal Medicine Endocrinology, Diabetes & Metabolism | DX: E03.9 Hypothyroidism, unspecified (principal) | CPT/HCPCS: 99212 ==

== ENCOUNTER 2024-01-26 13:57 | Outpatient (REF) | payer OTHER, SELFPAY ==
--- NOTE | 2024-01-26 13:59 | EMG_ITS ---
Chief complaint: Chronic right 2nd digit numbness/pain, since 2016 Reason for referral: Evaluate for entrapment neuropathy, Carpal Tunnel Syndrome Referred by: Russ OSBORN Procedure done: Right upper extremity NCS/EMG Precautions and/or limitations: None The limb temperature was monitored continuously and remained between 32-36 degrees C during the performance of the NCS. Nerve Conduction Studies Anti Sensory Summary Table ?Stim Site NR Onset (ms) Norm Onset (ms) Peak (ms) Norm Peak (ms) O-P Amp (?V) Norm O-P Amp Site1 Site2 Delta-0 (ms) Dist (cm) Alverto (m/s) Norm Alverto (m/s) Right Median Anti Sensory (2nd Digit) Wrist ? 2.1 2.8 <3.6 29.4 >10 Wrist 2nd Digit 2.1 14.0 67 Right Radial Anti Sensory (Thumb) Forearm ? 1.3 1.8 <3.1 22.5 Forearm Thumb 1.3 0.0 Right Ulnar Anti Sensory (5th Digit) Wrist ? 2.2 2.9 <3.7 19.4 >15.0 Wrist 5th Digit 2.2 14.0 64 Motor Summary Table ?Stim Site NR Onset (ms) Norm Onset (ms) O-P Amp (mV) Norm O-P Amp iAmp (mV) Amp (1st) (%) Site1 Site2 Delta-0 (ms) Dist (cm) Alverto (m/s) Norm Alverto (m/s) Right Median Motor (Abd Poll Brev) Wrist ? 2.4 <3.9 6.8 >4.5 8.3 100.0 Elbow Wrist 3.9 21.5 55 >45 Elbow ? 6.3 6.8 8.3 100.0 Right Ulnar Motor (Abd Dig Minimi) Wrist ? 2.4 <3.0 8.7 >5 10.6 100.0 B Elbow Wrist 3.0 19.0 63 >45 B Elbow ? 5.4 7.1 9.0 81.6 A Elbow B Elbow 1.7 10.0 59 >45 A Elbow ? 7.1 6.5 8.0 74.7 EMG ?Side Muscle Nerve Root Ins Act Fibs Psw Amp Dur Poly Recrt Int Pat Comment Right 1stDorInt Ulnar C8-T1 Nml Nml Nml Nml Nml 0 Nml Complete Right FlexCarRad Median C6-7 Nml Nml Nml Nml Nml 0 Nml Complete Right Biceps Musculocut C5-6 Nml Nml Nml Nml Nml 0 Nml Complete Right Triceps Radial C6-7-8 Nml Nml Nml Nml Nml 0 Nml Complete Right Deltoid Axillary C5-6 Nml Nml Nml Nml Nml 0 Nml Complete FINDINGS: All motor and sensory nerves tested showed normal latencies, amplitudes and conduction velocities. Concentric needle EMG was performed in selected muscles of the right upper extremity. Study did not reveal signs of electric abnormalities as shown in the table above. IMPRESSION: 1. This is a normal study. 2. There is no electrodiagnostic evidence for median neuropathy, ulnar neuropathy, brachial plexopathy, or cervical radiculopathy. Thank you for your kind referral. Nany Delatorre MD, BIANCA Board Certified, [place] Board of [employer] and Rehabilitation (ABPMR) Board Certified, [place] Board of Electrodiagnostic Medicine (ABEM) CODIN 70680 MTDD
== END 2024-01-26 13:58 | disposition home or self-care (01) ==
LOC: HO.NEURO 13:57
PROVIDERS: PCP Registered Nurse
DX: R20.0 Anesthesia of skin (principal); R20.2 Paresthesia of skin
CPT/HCPCS: 95886; 95909

== ENCOUNTER → 2024-01-26 13:59 | Outpatient (BNV) | payer OTHER, SELFPAY | PROVIDERS: PCP Registered Nurse; Visit Provider Physical Medicine & Rehabilitation | DX: R20.0 Anesthesia of skin (principal); R20.2 Paresthesia of skin | CPT/HCPCS: 95886; 95909 ==

== ENCOUNTER 2024-02-22 12:59 | Outpatient (REF) | payer OTHER, SELFPAY ==
--- NOTE | ~2024-02-22 | XR_ITS ---
EXAMINATION: XR ANKLE, RIGHT CLINICAL INFORMATION: Right ankle pain COMPARISON: None available. TECHNIQUE: AP, lateral, and mortise views of the right ankle. FINDINGS: The ankle mortise is preserved. No fracture. Small heel spur and posterior calcaneal enthesophyte. XR/XR ankle RT min 3V IMPRESSION: Small heel spur and posterior calcaneal enthesophyte. No fracture. Electronically signed by: Chaitanya Gomez MD 02/22/2024 03:35 PM EDT
== END 2024-02-22 13:00 | disposition home or self-care (01) ==
LOC: HO.HOSX 12:59
PROVIDERS: PCP Registered Nurse; Visit Provider Physician Assistant
DX: M25.571 Pain in right ankle and joints of right foot (principal); M17.11 Unilateral primary osteoarthritis, right knee; M77.51 Other enthesopathy of right foot and ankle; D17.21 Benign lipomatous neoplasm of skin and subcutaneous tissue of right arm
CPT/HCPCS: 73610; 99202

== ENCOUNTER 2024-02-22 12:59 | Outpatient (AMB) | payer OTHER, SELFPAY ==
--- NOTE | 2024-02-22 13:11 | MHC.OFFVIS ---
Intake Visit Reasons: ov- right ankle pain Intake Note: Suha a 63 year old female who presents today for a follow up of right ankle pain. Patient reports ongoing ankle pain and swelling. She did not feel comfortable at [facility], she d/c and did at home exercises that has not helped. States her who right leg becomes cold and with walking she stomps. She was scheduled to see a vein specialist however due to personal reasons she had to cancel. Allergies Penicillins [PENICILLINS] Allergy (Unknown, Verified 02/22/24 13:18) ANAPHYLAXIS HPI HPI ov- right ankle pain: Details: 63-year-old female who returns to the office today for a follow-up of right ankle pain. She continues to have ongoing pain and swelling in her ankle. Her right leg becomes cold and she hears ?stomps? with ambulation. She had tried [facility] therapy that she discontinued as she was not comfortable. She also did home exercises that did not provide her any relief. [facility] Medical History (Updated 02/22/24 @ 13:47 by Aldo Sargent PA-C) Depression Asthma Hypothyroid Surgical History (Updated 02/22/24 @ 13:19 by Martha Baker Rigoberto) History of esophagogastroduodenoscopy (EGD) Hx of colonoscopy History of excision of mass History of umbilical hernia repair History of arthroscopic knee surgery Family History Mother Asthma Father History of open heart surgery Social History Alcohol intake: never Patient Tobacco Use Status: Never used Tobacco Current occupational status: disabled Current occupation: rt hand Review of Systems Const All systems reviewed & are unremarkable except as noted in HPI and below Physical Exam Extrem Other: Right ankle: Normal to inspection. She has swelling over the lateral aspect of the ankle with mild tenderness. Results Reviewed Results Reviewed: Xrays were obtained in the office today and personally reviewed by me show Small heel spur and posterior calcaneal enthesophyte. No fracture. Assessment & Plan Assessment & Plan (1) Primary osteoarthritis of right knee: Code(s): M17.11 - Unilateral primary osteoarthritis, right knee Category: Medical (2) Right ankle pain: Code(s): M25.571 - Pain in right ankle and joints of right foot Category: Medical Plan She was placed in a lace up ankle brace for stability with ambulation. An MRI of the right ankle was ordered to further evaluate the soft tissues. I will contact her once the scan is complete to determine the next step in her treatment. She was referred to general surgery for a lipoma in her axilla. Orders: Orders XR ankle RT min 3V 02/22/24 M25.571 - Pain in right ankle and joints of right foot PT Evaluation and Treatment 02/22/24 M77.51 - Other enthesopathy of right foot and ankle MR ankle RT wo con 02/22/24 M77.51 - Other enthesopathy of right foot and ankle Referrals General Surgery Referral D17.21 - Benign lipomatous neoplasm of skin and subcutaneous tissue of right arm Patient Instructions: Scribed for Aldo Sargent PA-C, by Peter Mcgill medical appointment clerk, on 02/22/2024 at 1:45 PM EST.? I, Aldo Sargent PA-C, have personally reviewed and agree with the information entered by the scribe. Coding Level of Care Code New Pt Level 3 (12916) Complex EM visit Add On G2211 Diagnoses Primary osteoarthritis of right knee M17.11 Right ankle pain M25.571
== END 2024-02-22 14:14 | disposition home or self-care (01) ==
LOC: HO.HOS 12:59
PROVIDERS: PCP Registered Nurse; Visit Provider Physician Assistant
DX: M17.11 Unilateral primary osteoarthritis, right knee (principal); M25.571 Pain in right ankle and joints of right foot
CPT/HCPCS: 99203; G2211

== ENCOUNTER 2024-03-13 10:58 | Outpatient (REF) | payer OTHER, SELFPAY ==
[2024-03-13 13:03] LABS: Free T4 (Free Thyroxine) 1.06 ng/dL (0.71-1.85); Thyroid Stimulating Hormone 6.34 uIU/mL (0.32-4.0); Vitamin D 25-OH Total 28.9 ng/mL (>30)
== END 2024-03-13 10:59 | disposition home or self-care (01) ==
LOC: HO.LAB 10:58
PROVIDERS: PCP Registered Nurse; Visit Provider Internal Medicine Endocrinology, Diabetes & Metabolism
DX: E03.9 Hypothyroidism, unspecified (principal)
CPT/HCPCS: 36415; 82306; 84439; 84443

== ENCOUNTER 2024-03-15 15:05 | Outpatient (AMB) | payer OTHER, SELFPAY ==
--- NOTE | 2024-03-15 15:06 | MHC.OFFVIS ---
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 Supervisor Intelligence Analyst Required: No Accompanied by: Self / Same As Patient Allergies Penicillins [PENICILLINS] Allergy (Unknown, Verified 03/15/24 15:10) ANAPHYLAXIS HPI Comments Details: 63 YO F with who is seen in consultation at the request of his PCP for Hyothyroidism. Previously seen by myself in 2012 for hypothyroidism . Currently using levothyroxine 112 mcg. Takes it consistently without food without the medications. Denies fatigue, weight gain, cold intolerance, dry skin, hair loss, constipation. There is no hx of hyperlipidemia . Denies obstructive sx of goiter . Denies consuming any kelp or seaweed. Denies taking amiodarone. Biotin: No Labs: Also on vitamin D3 2000 Iu/day but not taking consistently because ?hurts her bones?. Also claims that eyes bulge intermittently and pressure behind the eyes [facility] Medical History (Updated 03/15/24 @ 15:30 by Valentin Sifuentes MD) Vitamin D deficiency Depression Asthma Hypothyroid Surgical History History of esophagogastroduodenoscopy (EGD) Hx of colonoscopy History of excision of mass History of umbilical hernia repair History of arthroscopic knee surgery Family History Mother Asthma Father History of open heart surgery Social History Alcohol intake: never Patient Tobacco Use Status: Never used Tobacco Current occupational status: disabled Current occupation: rt hand Physical Exam Vital Signs: Last Vital Signs Pulse 86 03/15/24 15:10 BP 132/62 03/15/24 15:10 BMI result Body Mass Index 37.5 Const Other: Thyroid gland is normal size weighs about 15 g. There are no thyroid nodules palpated. 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 She appears to be clinically euthyroid but has elevated TSH. Plan is to to switch levothyroxine to branded Synthroid 125 mcg and recheck TSH and free T4 in 6 weeks time. Lastly I have referred her to Dr. Fatima thyroid eye expert in [place] will do not appreciate any thyroid orbitopathy today (2) Vitamin D deficiency: Code(s): E55.9 - Vitamin D deficiency, unspecified Category: Medical Plan: Also, the patient will take vitamin D3 2000 IU per day [id number] and will check 25 hydroxy vitamin-D in 2 months. Orders: Orders Vitamin D 25-OH Total Today E03.9 - Hypothyroidism, unspecified, E55.9 - Vitamin D deficiency, unspecified Free T4 (Free Thyroxine) 2 Months E03.9 - Hypothyroidism, unspecified, E55.9 - Vitamin D deficiency, unspecified Thyroid Stimulating Hormone 2 Months E03.9 - Hypothyroidism, unspecified, E55.9 - Vitamin D deficiency, unspecified Referrals Ophthalmology Referral E07.9 - Disorder of thyroid, unspecified, H57.89 - Other specified disorders of eye and adnexa Medications: New Synthroid (levothyroxine) 125 mcg PO DAILY 30 tabs 5RF NS Coding Level of Care Code Est Pt Level 3 (87485) Diagnoses Hypothyroid E03.9 Vitamin D deficiency E55.9
[2024-03-15 15:10] VITALS: BP 132/62; PULSE 86; BMI 37.5
== END 2024-03-15 15:38 | disposition home or self-care (01) ==
PROVIDERS: PCP Registered Nurse; Visit Provider Internal Medicine Endocrinology, Diabetes & Metabolism
DX: E03.9 Hypothyroidism, unspecified (principal); E55.9 Vitamin D deficiency, unspecified
CPT/HCPCS: 99213

== ENCOUNTER → 2024-03-15 15:05 | Outpatient (BNVA) | payer OTHER, SELFPAY | PROVIDERS: PCP Registered Nurse; Visit Provider Internal Medicine Endocrinology, Diabetes & Metabolism | DX: E03.9 Hypothyroidism, unspecified (principal); E55.9 Vitamin D deficiency, unspecified | CPT/HCPCS: 99212 ==

== ENCOUNTER 2024-04-02 14:01 | Outpatient (AMB) | payer OTHER, SELFPAY ==
--- NOTE | 2024-04-02 14:02 | MHC.OFFVIS ---
Vital Signs 04/02/24 14:08 Height 5 ft Weight 191 lb BMI 37.3 BP 134/73 Blood Pressure Location Rt brachial Position Sitting Pulse 83 Intake Visit Reasons: Lipoma Right axilla Intake Note: Patient referred by Renaldo Sargent PA-C for lipoma on Rt axilla. Present for 2yrs. Patient c/o: tenderness with pressure. Feels other smaller growths near it. Pain radiates to back. Respiratory Care Instructor Required: No Accompanied by: Self / Same As Patient Allergies Penicillins [PENICILLINS] Allergy (Unknown, Verified 04/02/24 14:06) ANAPHYLAXIS HPI Comments Details: Patient presents with a longstanding history of right axillary pains/posterior arm discomfort. This has been going on for several years. She has had extensive workup for this including ultrasound, CTA, mammogram, all of which have demonstrated no pathology. She presents here for another opinion regarding this. Does not recall any trauma to the area. She has had negative breast evaluations. Chart was reviewed and patient evaluated [facility] Medical History (Updated 03/15/24 @ 15:30 by Valentin Sifuentes MD) Vitamin D deficiency Depression Asthma Hypothyroid Surgical History (Updated 04/02/24 @ 14:30 by Jude Logan MD) History of esophagogastroduodenoscopy (EGD) Hx of colonoscopy History of excision of mass History of umbilical hernia repair History of arthroscopic knee surgery Family History Mother Asthma Father History of open heart surgery Social History Alcohol intake: never Patient Tobacco Use Status: Never used Tobacco Current occupational status: disabled Current occupation: rt hand Physical Exam Vital Signs: Last Vital Signs Pulse 83 04/02/24 14:08 BP 134/73 04/02/24 14:08 BMI result Body Mass Index 37.3 Chest Other: Bilateral breast exam negative. Bilateral periclavicular and axillary exam is negative. Assessment & Plan Assessment & Plan (1) Pain in right axilla: Code(s): M79.621 - Pain in right upper arm Category: Surgical Plan Radiographic studies which were reviewed by me along with physical exam demonstrate no organic or demonstratable pathology in the right axilla.. Patient was reassured that there is no evidence of any ominous pathology in the axilla. At present no acute surgical issues warranting therapy redemonstrated. Patient will otherwise follow-up with me p.r.n.. All questions answered. Coding Level of Care Code New Pt Level 4 (65716) Diagnoses Pain in right axilla M79.621
[2024-04-02 14:08] VITALS: BP 134/73; PULSE 83; BMI 37.3
== END 2024-04-02 14:21 | disposition home or self-care (01) ==
PROVIDERS: PCP Registered Nurse; Visit Provider Surgery
DX: M79.621 Pain in right upper arm (principal)
CPT/HCPCS: 99204

== ENCOUNTER → 2024-04-02 14:01 | Outpatient (BNVA) | payer OTHER, SELFPAY | PROVIDERS: PCP Registered Nurse; Visit Provider Surgery | DX: M79.621 Pain in right upper arm (principal) | CPT/HCPCS: 99202 ==

== ENCOUNTER 2024-04-16 14:00 | Outpatient (REF) | payer OTHER, SELFPAY ==
--- NOTE | ~2024-04-16 | MR_ITS ---
EXAMINATION: MR ANKLE WITHOUT CONTRAST RIGHT CLINICAL INFORMATION: Other enthesopathy of right foot and ankle M77.51. Right ankle pain laterally and swelling. COMPARISON: XR Right ankle 02/22/2024 TECHNIQUE: MRI of the ankle was performed using routine sequences on a high-field scanner. FINDINGS: BONE AND ARTICULAR CARTILAGE: No acute fracture or dislocation. The ankle mortise is maintained. No talar osteochondral lesion. No marrow edema or evidence of acute osseous injury. ACHILLES TENDON: Minimal distal Achilles tendinosis. No tendon tear. OTHER TENDONS: No edema or evidence of acute injury. No tendon tear or retraction. Mild low-lying muscle belly of the peroneal brevis tendon in the region of the lateral malleolus without edema or evidence of acute injury. LIGAMENTS: No acute ligament injury. JOINT FLUID AND SOFT TISSUES: Along the lateral aspect of the calcaneocuboid joint at the lateral midfoot, there is a synovial recess versus ganglion cyst which measures approximately 1.2 x 0.4 x 1.1 cm (AP x ML x CC). Trace fluid within the retrocalcaneal bursa which could represent normal variation versus minimal bursitis. PLANTAR FASCIA: Intact. Small plantar calcaneal spur without edema or evidence of acute injury. SINUS TARSI AND TARSAL TUNNEL: Mild narrowing of the sinus tarsi with minimal edema which can be seen in the setting of sinus tarsi syndrome. Patent tarsal tunnel. MR/MR ankle RT wo con IMPRESSION: 1. Synovial recess versus ganglion cyst along the lateral aspect of the calcaneocuboid joint measuring up to 1.2 cm. 2. Minimal distal Achilles tendinosis without a measurable tendon tear. Trace fluid within the retrocalcaneal bursa which could represent normal variation versus minimal bursitis. 4. Mild narrowing of the sinus tarsi with minimal edema which can be seen in the setting of sinus tarsi syndrome. Electronically signed by: Dave Dietz MD 04/19/2024 10:18 AM [facility]
== END 2024-04-16 14:01 | disposition home or self-care (01) ==
LOC: HO.MRI 14:00
PROVIDERS: PCP Registered Nurse; Visit Provider Physician Assistant
DX: M77.51 Other enthesopathy of right foot and ankle (principal)
CPT/HCPCS: 73721

== ENCOUNTER 2024-05-14 14:23 | Outpatient (AMB) | payer OTHER, SELFPAY ==
--- NOTE | 2024-05-14 14:23 | MHC.OFFVIS ---
Vital Signs 05/14/24 14:28 Height 5 ft Weight 191 lb BMI 37.3 Intake Visit Reasons: TEL- RT ankle MRI review Intake Note: Suha is a 63 year old female who is scheduled today for telephone visit to review MRI of right ankle. Patient reports no changes in her symptoms, she has ongoing swelling and pain. Allergies Penicillins [PENICILLINS] Allergy (Unknown, Verified 05/14/24 14:28) ANAPHYLAXIS HPI HPI TEL- RT ankle MRI review: Details: 63 yo female presents for MRI right ankle telehealth visit. She states she continues to have pain in the ankle along with swelling. She has done PT without relief in the past. She feels her pain go from the ankle into the leg. She has numbness , denies back pain. [facility] Medical History (Updated 03/15/24 @ 15:30 by Valentin Sifuentes MD) Vitamin D deficiency Depression Asthma Hypothyroid Surgical History (Updated 04/02/24 @ 14:30 by Jude Logan MD) History of esophagogastroduodenoscopy (EGD) Hx of colonoscopy History of excision of mass History of umbilical hernia repair History of arthroscopic knee surgery Family History Mother Asthma Father History of open heart surgery Social History Alcohol intake: never Patient Tobacco Use Status: Never used Tobacco Current occupational status: disabled Current occupation: rt hand Review of Systems Const All systems reviewed & are unremarkable except as noted in HPI and below Physical Exam Resp Effort & Inspection: normal respiratory effort and able to speak in complete sentences Telehealth Telehealth Telehealth Platform: Telephone Location of provider rendering services: practice address Location of patient: address on file Patient Identification confirmed using: Name, : Yes Telehealth method: voice only Patient verbally consented to treatment: Yes Patient verbally consented to billing insurance company: Yes Patient informed of any privacy concerns related to visit: Yes Minutes spent on Phone/Video with Pt.: 10 Results Reviewed Results Reviewed: MR ankle RT wo con IMPRESSION: 1. Synovial recess versus ganglion cyst along the lateral aspect of the calcaneocuboid joint measuring up to 1.2 cm. 2. Minimal distal Achilles tendinosis without a measurable tendon tear. Trace fluid within the retrocalcaneal bursa which could represent normal variation versus minimal bursitis. 4. Mild narrowing of the sinus tarsi with minimal edema which can be seen in the setting of sinus tarsi syndrome. Assessment & Plan Assessment & Plan (1) Right ankle tendonitis: Code(s): M77.51 - Other enthesopathy of right foot and ankle Category: Medical Plan: Patient continues to express frustration in her symptoms. I strongly encouraged PT but she declines. I recommend an appt with a foot and ankle specialist to see if there are other treatment options such as injections vs surgical intervention. she is content with this plan. Coding Level of Care Code Tele Est Pt Level 3 (96323) Diagnoses Right ankle tendonitis M77.51
[2024-05-14 14:28] VITALS: BMI 37.3
--- OUTSIDE RECORDS SUMMARY | 2024-05-14 17:01 | XMS_ITS | Continuity of Care Document ---
Author Organization [facility] Address [address] [place] [address] Dr [address] [place] [address] Phone Care Team Providers Care Ultrasound Manager Name Role Phone Kody GARZON, STEPHANIE, Valentin ARROYO Unavailable U navailable Procedures Procedure Date Offic Cons New/estab Mod-hi 60- CT & [place] Duplex Scan-extrem Veins; Comp- CT & [place] Advance Directives Directive Yes / No Effective Date File Name No Information Encounters Encounter Description Practice Location Reason(s) For Visit Diagnoses Date Provider Providers Copied on Encounter [facility], [address] [place] [address] Dr Mcdaniel [address]L[place], [id number], tel:[phone] [facility] No Information 5 Kody GARZON, DINA BROWN. [address] [place] [address], [id number] , [place]. tel:[phone] Offic Cons New/estab Mod-hi 60- CT & [place] [facility], [address] [place] [address] Dr Mcdaniel [address]Lise [place], [id number], tel:[phone] [facility] Chronic venous hypertension (idiopathic) with other complications of bilateral lower extremityLymphe gerri, not elsewhere classifiedHered itary lymphedemaCramp and spasmLocalized edema 5 Kody GARZON RVT, RPVI Robert. [address] [place] [address] ld, [place], [id number] , [place]. [phone] [facility], [address] [facility] [address], [place], [id number], [place] tel:[phone] [facility] [place] Chronic venous hypertension (idiopathic) with other complications of bilateral lower extremity 5 Kody GARZON, RVT, RPWANG Hanson. [address] [facility], [address], [place], [place], [id number] , [place]. [phone] Referring Provider: [facility], [facility] Walk-in Center [address] [place], [address]. tel:[phone] Family History Family Member Type Diagnosis Age At Onset No Information Payers Payer name Insurance type Covered constitution party ID Parish rolonsheila(s) [facility] [id number] Social History Type Description Quantity Date Captured Comments Sex Female Smoking Status No Information Chief Complaint And Reason For Visit No Information Reason For Referral Reason For Referral No Information Plan Of Treatment Date Type Action Status Goal Diet education completed Referral Ordered: Weight management: Referral to physician timeframe: 3 Months (related to Body mass index (BMI) 35.0-35.9, adult) ordered Appointment Suha Buck BOOKED History Of Present Illness Encounter Date Complaint History Of Prese nt Illness No Information Functional Status Date Functional Assessmen t No Information Instructions Date Instruction Additional Infor mation Diet education Related to Body mass index (BMI) 35.0-35.9, adult Giving Encouragement to exercise Related to Body mass index (BMI) 35.0-35.9, adult Lifestyle education Related to B junior mass index (BMI) 35.0-35.9, adult Compression stocking usage as conservative measure Related to Chronic venous hypertension (idiopathic) with other complications of bilateral lower extremity Patient education booklet given Related to Chronic venous hypertension (idiopathic) with other complications of bilateral lower extremity Assessments Type Assessment Date No Information Patient Care Teams Name Effective Dates (start - stop) Status Members No Information
== END 2024-05-14 14:35 | disposition home or self-care (01) ==
LOC: HO.HOS 14:23
PROVIDERS: PCP Registered Nurse; Visit Provider Physician Assistant
DX: M77.51 Other enthesopathy of right foot and ankle (principal)
CPT/HCPCS: 98016

== ENCOUNTER → 2024-05-14 14:23 | Outpatient (BNVA) | payer OTHER, SELFPAY | PROVIDERS: PCP Registered Nurse; Visit Provider Physician Assistant ==

== ENCOUNTER 2024-10-25 13:13 | Outpatient (AMB) | payer OTHER, SELFPAY ==
--- OUTSIDE RECORDS SUMMARY | 2024-06-25 12:18 | XMS_ITS | Continuity of Care Document ---
Author Organization [facility] Address [address] [place] [address] Dr [address] [place] [address] Phone Care Team Providers Care Derivatives Trader Name Role Phone Kody GARZON, STEPHANIE, Valentin ARROYO Unavailable U navailable Procedures Procedure Date Offic Cons New/estab Mod-hi 60- CT & [place] Duplex Scan-extrem Veins; Comp- CT & [place] Advance Directives Directive Yes / No Effective Date File Name No Information Encounters Encounter Description Practice Location Reason(s) For Visit Diagnoses Date Provider Providers Copied on Encounter [facility], [address] [place] [address] Dr Mcdaniel [address]Lise [place], [id number], tel:[phone] [facility] No Information 5 Kody GARZON, DINA BROWN. [address] [place] [address], [id number] , [place]. tel:[phone] Offic Cons New/estab Mod-hi 60- CT & [place] [facility], [address] [place] [address] Dr Mcdaniel [address] 1000Lise [place], [id number], tel:[phone] [facility] Chronic venous hypertension (idiopathic) with other complications of bilateral lower extremityLymphe gerri, not elsewhere classifiedHered itary lymphedemaCramp and spasmLocalized edema 5 Kody GARZON RVT, RPVI Robert. [address] [place] [address] ld, [place], [id number] , [place]. [phone] [facility], [address] [facility] [address], [place], [id number], [place] tel:[phone] [facility] [place] Chronic venous hypertension (idiopathic) with other complications of bilateral lower extremity 5 Kody GARZON, RVT, RPWANG Hanson. [address] [facility], [address], [place], [id number] , [place]. [phone] Referring Provider: [facility], [facility] Walk-in Center [address] [place], [address]. tel:[phone] Family History Family Member Type Diagnosis Age At Onset No Information Payers Payer name Insurance type Covered green party ID Parish marcus(s) [facility] [id number] Social History Type Description Quantity Date Captured [...]
--- NOTE | 2024-10-25 13:14 | A.OFFVIS_ITS ---
Intake Visit Reasons: discuss egd Allergies Penicillins (PENICILLINS) Allergy (Unknown, Verified 05/14/24 14:28) ANAPHYLAXIS HPI Comments Details: This is a 62 y.o F who is here for follow up. 09/21/22: She is due for colorectal screening. Pt does not have personal or family hx of colon polyps or colorectal cancer. No abd pain, N,V,D, blood in stool or unintentional weight loss. Last colonoscopy was in her 30s, does not remember the indication but was told that she did not have polyps at that time. 10/25/24: Pt elected to have a cologuard after last visit which was negative. Here as telehealth for abd symptoms and weight gain. Reports initially a ttributed this to hypothyroidism but now despite being on levothyroxine she continues to gain weight slowly but steadily. Reports weighs around 190 lbs i.e BMI 37. Alongside she also reports epigastric discomfort and bloating devorah after eating. Doesn?t matter what she eats. Has been avoiding certain foods and has incorporated more vegetables now. [facility] Medical History (Updated 10/25/24 @ 12:18 by Hope Orona MD) Vitamin D deficiency Depression Asthma Hypothyroid Surgical History History of esophagogastroduodenoscopy (EGD) Hx of colonoscopy History of excision of mass History of umbilical hernia repair History of arthroscopic knee surgery Family History Mother Asthma Father History of open heart surgery Social History Alcohol intake: never Patient Tobacco Use Status: Never used Tobacco Current occupational status: disabled Current occupation: rt hand Review of Systems Const All systems reviewed & are unremarkable except as noted in HPI and below Physical Exam Vital Signs: phone visit Assessment & Plan Assessment & Plan (1) Hypothyroid: Code(s): E03.9 - Hypothyroidism, unspecified Category: Medical (2) Obesity: Code(s): E66.9 - Obesity, unspecified Category: Medical (3) Bloating: Code(s): R14.0 - Abdominal distension (gaseous) Category: Medical Plan Obesity: Discussed with the pt that most recent labs were still abnormal and may need further uptitration of levothyroxine. In addition, will refer to bariatrics medicine for multidisciplinary weight management. Bloating: In terms of post prandial bloating ddx include malabsorption, food intolerance, celiac, DGBI. Plan: - Labs as below - UGIS - Low FODMAP diet reviewed and a manager state will also be sent out Follow up 3 months Orders: Orders [place] upper GI series Today R14.0 - Abdominal distension (gaseous) Transglutaminase IgA Today E03.9 - Hypothyroidism, unspecified, E66.9 - Obesity, unspecified TSH reflex Free T4 Today E03.9 - Hypothyroidism, unspecified, E66.9 - Obesity, unspecified Immunoglobulin A Today E03.9 - Hypothyroidism, unspecified, E66.9 - Obesity, unspecified Referrals Bariatric Surgery Referral E66.9 - Obesity, unspecified Coding Level of Care Code Est Pt Level 3 (45735) Diagnoses Hypothyroid E03.9 Obesity E66.9 Bloating R14.0
--- OUTSIDE RECORDS SUMMARY | 2024-10-25 13:20 | XMS_ITS | Encounter Summary ---
Author Organization [employer] Address [address] [facility] [address] [place] [address] Care Team Providers Care Regulatory Compliance Engineer Name Role Phone [facility] Primary Care Provider [phone] Encounter Details Date Type Department Care Team ([facility] Contact Info) Description 08/02/2024 Telephone [facility] [address] [place], [place] [phone] [place] [facility] [address] [place], [place] [phone] Social History Tobacco Use Types Packs/Day Years Used Date Smoking Tobacco: Former Cigarettes Q uit: 2006 Smokeless Tobacco: Never Alcohol Use Standard Drinks/Week Comments Never 0 (1 standard drink = 0.6 oz pur e alcohol) Depression Answer Date Recorded Patient Health Questionnaire-9 Score 0 05/30/2024 Patient Health Questionnaire-9 Score 0 05/30/2024 Last PHQ-9: Questionnaire Data Not on file 0 05/30/2024 Housing Stability Answer Date Recorded What is your housing situation today? I have danielle mejía 02/07/[address] you li ve. Do you have problems with any of the following? None of the above 02/07/2023 Food Insecurity Answer Date Recorded Within the past 12 months, y ou worried that your food would run out before you got money to buy more: Never True 02/07/2023 Within the past 12 months,th e food you bought just didn't last and you didn't have enough money to get more: Never True Transportation Answer Date Recorded In the past 12 months, has l ack of transportation kept you from medical appts, meetings, work or from getting things needed for daily living? No 02/07/2023 Utilities Answer Date Recorded In the past 12 months, has t he electric, gas, oil or water company threatened to shut off services in your home? No 02/07/2023 Depression Answer Date Recorded Patient Health Questionnaire-2 Score 0 05/30/2024 Comments Unknown Sex and Gender Information Value Date Recorded Sex Assigned at Female 02/22/2022 10:15 AM EDT Legal Sex Female 10:15 AM EDT Gender Identity Female 02/22/2022 10:15 AM EDT Sexual Orientation Straight 02/22/2022 10 :15 AM EDT documented as of this encounter Plan of Treatment Not on file documented as of this encounter Visit Diagnoses Not on filedocumented in this encounter Additional Health Concerns Assessment Noted Time PHQ-9 Depression Total Score: 0 05/30/19 25 2:37 PM EST documented as of this encounter Care Teams Regulatory Compliance Engineer Relationship Specialty Start Date End Date Ileana Farley FNP [address] [place] [id number] PCP - General Family Medicine 12/19/21 documented as of this encounter
--- OUTSIDE RECORDS SUMMARY | 2024-10-25 13:20 | XMS_ITS | Data Portability ---
Author Organization ESTELITA Isauro Griffin [facility]geons [facility], [facility] Address [address] [place] [address] Assessment Encounter Date Assessment Date Assessment LastModified by Organization Details LastModified Time 09/27/2024 09/27/2024 Dx:Bilateral end-stage medial compartment arthritis Interval History:64-year-o ld woman, bilateral right greater than left knee pain, is status post left knee arthroscopy 2018, after which she actually did well. SocHx: nonsmoker, non drinker ROS: negative Past Medical/Surgical History/Meds/Lyndon rgies reviewed and charted. Physical Exam: afebrile, vital signs stable, in no apparent distress, oriented to person/place/time . Gait:Symmetric skin: intact, no erythema. Heart RRR. Lungs clear Abdomen soft, nontender. BilateralKNEE: no redness, warmth, Varusdeformity Effusion estimated 0cc. Atrophy none Range of Motion 0-130 degrees. Strength 5/5 all muscle groups. Luis negative. Pivot Shift negative Varus/Valgus/Post erior laxity testing: negative. Joint Line Tenderness: Medial. Patellofemoral crepitus absent. New Studies: Multiple views both knees, medial compartment ckhv-xn-zouw arthritis Impression:Bilate ral end-stage medial compartment arthritis Plan: 1.No role for arthroscopy, arthroplasty consult arranged, follow-up with nh payan [facility] speech recognition unhairer software was used to create portions of this document. An attempt at proofreading has been made to minimize errors. Please call for corrections. [email or web address] Not available 09/27/2024 16:13:34 Plan of Treatment Reminders Order Date Submit Date Provider Last Modified By Organization Details Last Modified Time Details Appointments NEW PATIENT 20 10/ 2025 02:40P M Russ Roach MD Not available Not available Not available Lab None recorded . Referral None recorded . Procedures None recorded . Surgeries None recorded . Imaging XR, knee, 4 or more view - 4v rt knee room 211 2024 025 [email or web address] [facility], [address], [place], [address], 10/03/2024 11:25:11 Medication Orders None recorded . Patient TargetsNo targets recorded. Patient InstructionsNo instructions recorded. Reason for Referral None Reported. Results Created Date Observation Date Name Description Value Unit Range Abnormal Flag Note LastModifiedBy Organization Detail LastModifiedTime 09/28/1909/27/2024 XR, knee, 4 or more view http:/ [email or web address] ?Encry pted=s hAaTro YD8dLq bEUv6g %2BXZw aYqtaq 0bqfl% 2Fg9IQ a4ajBk vP9nXo QUaueC m3YtLR FvZlgJ JJ8mAn HZtai3 5x2428 AC0Kla H2BVKu nKiQtr MwF INTERFACE [facility] [address], [place], [address], 09/27/2024 15:10:35 09/28/19 25 09/27/2024 XR, knee, 4 or more view http:/ [email or web address] ?Encry pted=s hAaTro YD8dLq bEUv6g %2BXZw aYqtaq 0bqfl% 2Fg9IQ a4ajBk vP9nXo QUaueC m3YtLR FvZlgJ JJ8mAn HZtai3 5n0131 AC0Kla H2BVKu nKiQtr MwF INTERFACE [facility] [address], [place], [address], 09/27/2024 15:10:37 Result Notes Documentation Provider Name and Address Organization Details Recorded Time Xr, Knee, 4 Or More View : [email or web address] Encrypted=vvGzNylRE5lCsgP Uv6g%1QXLipXavlw0ckmr%2Fg 8GDc7nySlcY8iGsDWizdQx9Ge BAGiJneDUB2bDjHMent93u817 2MV5DzoF5CGHnaCzBhzBoO Not Available [facility] 09/27/2024 15:10: 36 Xr, Knee, 4 Or More View : [email or web address] Encrypted=ntBbOfnHL8cHriF Uv6g%1ZZJfzQlici5zikr%2Fg 4SFd8hnPoqA1rUbJGvxyCa7Uk PEPsQxmWBG3xVqQYbic49a773 2XW7IxzB0YMBztFgIyzXnM Not Available [facility] 09/27/2024 15:10: 37 Problems Name Problem SNOMED Code Status Onset Date Resolution Date Notes Provider Name and Address Organization Details Recorded Time No complaints [id number] Active Status : 'A'; Not Available [facility] 09:12:09 Problem Notes None recorded. Medical Equipment None Reported. Allergies Allergen ID Allergen Name Allergen Category Reaction Reaction Severity Criticality Documentation Date Start Date Code Code System Note Provider Name and Address Organization Details Recorded Time 45732 Product containin g penicilli n (product) medicatio n Not available Not available Not available 06/27/20232017 77984 8001 SNOMED Aller gyRea ction : 'Naus ea/Vo mitin g/Kyleigh rrhea , Asthm a/Gloria rt of Breat h'; Not Available [facility] 11:24:42 Medications Name Sig Start Date Stop Date Status Note LastModified by Organization Details LastModified Time quetiapine 25 mg tablet TAKE 1 TABLET BY MOUTH EVERYDAY AT BEDTIME active Not Available Not Available No t Available atorvastatin 20 mg tablet TAKE 1 TABLET BY MOUTH EVERY DAY IN THE MORNING active Not Available Not Available No t Available albuterol sulfate 2.5 mg/3 mL (0.083 %) solution for nebulization TAKE 3 ML BY NEBULIZATIO N ROUTE EVERY 4 HOURS NEEDED FOR WHEEZING active Not Available Not Available No t Available Synthroid 125 mcg tablet TAKE 1 TABLET BY MOUTH DAILY active Not Available Not Available Not Available amlodipine 5 mg tablet TAKE 1 TABLET (5 MG) BY MOUTH ONCE PER DAY. active Not Available Not Available No t Available famotidine 20 mg tablet TAKE 1 TABLET BY MOUTH TWICE A DAY active Not Available Not Available No t Available trazodone 150 mg tablet TAKE 1 TABLET BY MOUTH EVERY DAY AT BEDTIME NEEDED active Not Available Not Available No t Available losartan 25 mg tablet TAKE 1 TABLET BY MOUTH EVERY DAY active Not Available Not Available No t Available clobetasol 0.05 % topical ointment PLEASE SEE ATTACHED FOR DETAILED DIRECTIONS active Not Available Not Available N ot Available albuterol sulfate HFA 90 mcg/actuatio n aerosol inhaler INHALE 2 PUFF BY INHALATION ROUTE EVERY 4 HOURS NEEDED active Not Available Not Available No t Available levothyroxin e 112 mcg tablet TAKE 1 TABLET BY MOUTH EVERY DAY active Not Available Not Available No t Available chlorhexidin e gluconate 0.12 % mouthwash SWISH AND SPIT OUT 15 MLS BY MOUTH FOR 1 MINUTE TWICE A DAY active Not Available Not Available Not Available cholecalcife rol (vitamin D3) 50 mcg (2,000 unit) capsule TAKE 1 CAPSULE BY MOUTH EVERY DAY active Not Available Not Available No t Available oxycodone HCl-oxycodon e-ASA twice a day 2017 active Statu s: 'Curr ent'; Not Available Not Available Not Available [employer] Blood Pressure Monitor-3 Series kit USE TO CHECK BLOOD PRESSURE EVERY DAY DIRECTED active Not Available Not Available Not Available Vitals Date Recorded Body height Body mass index (BMI) Body weight Provider Name and Address Organization Details Last Updated DateTime 09/27/2024 152.4 cm 35 kg/m2 10906.03 g JOSE MARIA ELAINE [place] - [facility] 09/27/2024 14:56:58 Social History None recorded. Functional Status None recorded. Mental Status None recorded. Family History Nothing Reported. Medical History No medical history recorded. Gynecological HistoryNo gynecological history recorded. Obstetrics History GPAL:G 0 P 0 0 0 0 Past Encounters Encounter ID Performer Location Encounter Start Date Encounter Closed Date Diagnosis/Indication Diagnosis SNOMED-CT Code Diagnosis ICD10 Code Diagnosis Note [id number] MD MARYSOL Jimenez [address] [place] [address] 09/27/2024 14:02:34 10/03/2024 11:25:11 Pain of right knee joint 9510112625 13596 M25.561 Health Concerns Section Related Observation LastModified by Organization Detai ls LastModified Time None Recorded Concern Status LastModified by Organization Details LastModified Time None Recorded Advance Directives Directive None Recorded Payers Insurance Date Sequence Insurance Name Policy Number Policy Zhang Covered Member ID Zhang Member ID Guarantor Name 10/03/2024 1 [facility] - DOS ON OR AFTER 2022 - ONE [employer] (MEDICARE REPLACEMENT/AD VANTAGE - HMO) Suha Buck [id number] OBGyn Episode No OBEpisode recorded.
--- OUTSIDE RECORDS SUMMARY | 2024-10-25 13:20 | XMS_ITS | Patient Health Record ---
Author Organization [facility] Address [address] [place] [address] Care Team Providers Care Correction Officer Head Name Role Phone Sesar Dobbs Jr [phone] Reason For Referral No Information Plan Of Treatment No Information
== END 2024-10-25 14:11 | disposition home or self-care (01) ==
LOC: HO.HGI 13:13
PROVIDERS: PCP Registered Nurse; Visit Provider Internal Medicine
DX: E03.9 Hypothyroidism, unspecified (principal); E66.9 Obesity, unspecified; R14.0 Abdominal distension (gaseous)
CPT/HCPCS: 99213

== ENCOUNTER → 2024-10-25 13:13 | Outpatient (BNVA) | payer OTHER, SELFPAY | PROVIDERS: PCP Registered Nurse; Visit Provider Internal Medicine | DX: Z71.2 Person consulting for explanation of examination or test findings (principal); R14.0 Abdominal distension (gaseous); E66.9 Obesity, unspecified; E03.9 Hypothyroidism, unspecified | CPT/HCPCS: 99212 ==

== ENCOUNTER 2024-12-06 11:31 | Outpatient (REF) | payer OTHER, SELFPAY ==
--- OUTSIDE RECORDS SUMMARY | 2024-12-06 12:36 | XMS_ITS | Encounter Summary ---
Author Organization [employer] Address [address] [place] [address] Care Team Providers Care Jewelry Sales Associate Name Role Phone [facility] Primary Care Provider [phone] Encounter Details Date Type Department Care Team ([facility] Contact Info) Description 08/02/2024 Telephone [facility] MEDICINE [address] [place], [place] [phone] [place] [facility] [address] [place], [place] [phone] Social History Tobacco Use Types Packs/Day Years [...] documented as of this encounter Care Teams Jewelry Sales Associate Relationship Specialty Start Date End Date Ileana Farley FNP [address] [place] [address] PCP - General Family Medicine 12/19/21 documented as of this encounter
--- OUTSIDE RECORDS SUMMARY | 2024-12-06 12:37 | XMS_ITS | Patient Health Record ---
Author Organization [facility] Address [address] [place] [address] Care Team Providers Care Efficiency Manager Name Role Phone Sesar Dobbs Jr Reason For Referral No Information Plan Of Treatment No Information
--- OUTSIDE RECORDS SUMMARY | 2024-12-06 12:37 | XMS_ITS | Clinical Summary ---
Author Organization [facility] Address [address] [place] [phone] Phone Care Team Providers Care Medicare Coordinator Name Role Phone Pcp, Not Required Primary Care Provider Unavaila ble Social History Tobacco Use Types Packs/Day Years Used Date Smoking Tobacco: Never Assessed Education Answer Date Recorded Are you interested in more education? Not on jim e 03/21/2024 Are you concerned about learning? Not on file 03/21/2024 No 03/21/2024 No 03/21/2024 Digital Access Answer Date Recorded No 03/21/2024 No 03/21/2024 Reliable internet access at home? Not on file 03/21/2024 Device with a working camera? Not on file Comments Unknown Sex and Gender Information Value Date Recorded Sex Assigned at Not on file Legal Sex Female 1:56 PM EST Gender Identity Not on file Sexual Orientation Not on file Plan of Treatment Health Maintenance Due Date Last Done Comments Adult Td,Tdap Booster 1958 LIPID PANEL 1958 DEPRESSION SCREENING 1970 SMOKING Hx and SMOKELESS TOB ACCO SCREENING 1971 HEPATITIS C SCREENING 1976 MAMMOGRAM 1998 COLOGUARD 2003 COLONOSCOPY 2003 COLORECTAL CANCER SCREENING 2003 FIT TEST 2003 FOBT 2003 SIGMOIDOSCOPY 2003 VIRTUAL COLONOSCOPY 2003 PNEUMOCOCCAL VACCINES (50+ y ears) (1 of 1 - PCV) 2008 ZOSTER VACCINES (1 of 2) 2008 OSTEOPOROSIS SCREENING INITI AL (ONE-TIME) 2023 COVID-19 VACCINE (1 - 2024-2 5 season) 2023 RSV VACCINE (1 - 1-dose 75+ series) 2033 HEPATITIS A VACCINES Aged Out No long er eligible based on patient's age to complete this topic HIB VACCINES Aged Out No longer eligi ble based on patient's age to complete this topic MENINGOCOCCAL VACCINES (ACWY) Aged Out No longer eligible based on patient's age to complete this topic MENINGOCOCCAL VACCINES (B) Aged Out N o longer eligible based on patient's age to complete this topic Medical Devices Not on file Insurance MEDICARE PART A & B MEDICARE PART A & B MEDICARE PART A & B MEDICARE PART A & B MEDICARE PART A & B MEDICARE PART A & B Care Teams Medicare Coordinator Relationship Specialty Start Date End Date Pcp, Not Required [address] [place] [address] PCP - General 03/19/24 Additional Source Comments The information contained in this document represents components of the legal health record. It is not the complete legal health record.[facility]
[2024-12-07 06:53] LABS: Immunoglobulin A 133 mg/dL (70-320)
== END 2024-12-06 11:32 | disposition home or self-care (01) ==
LOC: HO.LAB 11:31
PROVIDERS: Visit Provider Internal Medicine
DX: Z01.84 Encounter for antibody response examination (principal); E03.9 Hypothyroidism, unspecified; E66.9 Obesity, unspecified
CPT/HCPCS: 36415; 82784; 84443; 86364

== ENCOUNTER 2025-02-14 09:57 | Outpatient (REF) | payer OTHER, SELFPAY ==
--- NOTE | ~2025-02-14 | FL_ITS ---
EXAMINATION: XR FLUOROSCOPY UPPER GI WITH AIR CLINICAL INFORMATION: Abdominal distention and pain. COMPARISON: None available. TECHNIQUE: Routine upper GI air contrast study was performed in upright and lying position. FINDINGS: Following oral administration of thick barium and effervescent granules there is normal propagation bolus from the oral cavity through the pharynx, esophagus into stomach without any evidence of obstruction, narrowing or stricture. There is no intraluminal filling defect or extrinsic compression. Mild prominence of cricoesophageal sphincter seen but no obstruction noted. On placing patient in supine and prone lying the course, caliber and peristalsis of the stomach, duodenal bulb and the sweep is normal. Mild increased gastric secretions are noted. The mucosal pattern of the stomach, duodenal bulb and sweep is normal. There is moderate gastroesophageal reflux with a small sliding hiatal hernia in right lateral decubitus view. FLUOROSCOPY TIME: 2 minute and 4 seconds. DOSE AREA PRODUCT: 1954 uGy-m2 (microgray-meter squared) FL/FL upper GI w air IMPRESSION: Small sliding hiatal hernia with moderate gastroesophageal reflux into the upper esophagus. Mild increased gastric secretions likely secondary to hyperacidity. Electronically signed by: Russell Jackson MD 02/14/2025 01:31 PM EDT
--- OUTSIDE RECORDS SUMMARY | 2025-02-14 11:34 | XMS_ITS | Encounter Summary ---
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 Social History Tobacco Use Types Packs/Day Years Used Date Smoking Tobacco: Former Cigarettes Q uit: 2006 Smokeless Tobacco: Never Alcohol Use Standard Drinks/Week Comments Never 0 (1 standard drink = 0.6 oz pur e alcohol) Depression Answer Date Recorded Patient Health Questionnaire-9 Score 0 09/03/2022 Housing Stability Answer Date Recorded What is [...] Date Recorded Patient Health Questionnaire-2 Score 0 09/03/2022 Comments Unknown Sex and Gender Information Value Date Recorded Sex Assigned at Female 02/22/2022 10:15 AM EDT Legal Sex Female 10:15 AM EDT Gender Identity Female 02/22/2022 10:15 AM EDT Sexual Orientation Straight 02/22/2022 10 :15 AM EDT documented as of this encounter Plan of Treatment Upcoming Encounters Date Type Department Care Team (Late st Contact Info) Description 02/27/2025 3:00 PM EST Office Visit [facility] MEDICINE [address] [place] [address] Ileana Farley FNP [address] [place] [address] documented as of this encounter Visit Diagnoses Diagnosis 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
--- OUTSIDE RECORDS SUMMARY | 2025-02-14 11:34 | XMS_ITS | Clinical Summary ---
Author Organization [employer] Address [address] [facility] 7[address] [place] [address] Care Team Providers Care Jewel Hole Cornerer Name Role Phone [facility] Primary Care Provider [phone] Allergies Active Allergy Reactions Criticality Noted Date Comments Penicillin V Anaphylaxis High 06/05/2010 Medications Blood Pressure Monitoring (Omron 3 Series BP Monitor) device USE TO CHECK BLOOD PRESSURE ONCE OR TWICE DAILY DIRECTED 022 Active QUEtiapine (SEROquel) 25 MG tablet Take 25 mg by mouth at bedtime. 022 Active traZODone (Desyrel) 150 MG tablet Take 150 mg by mouth if needed at bedtime. 022 Active Mometasone Furoate (Asmanex HFA) 100 MCG/ACT aerosolIndication s:Mild intermittent asthma without complication TAKE 2 PUFFS BY INHALATION ROUTE 2 TIMES EVERY DAY 13 g 024 Active Blood Pressure kitIndications:Pr imary hypertension Use as directed 1 kit 024 Active atorvastatin (Lipitor) 20 MG tabletIndications :Mixed hyperlipidemia TAKE 1 TABLET BY MOUTH EVERY DAY IN THE MORNING 90 tablet 3 025 Active losartan (Cozaar) 25 MG tabletIndications :Primary hypertension Take 1 tablet (25 mg) by mouth Once per day. 30 tablet 11 025 2025 Active amLODIPine (Norvasc) 5 MG tablet Take 1 tablet (5 mg) by mouth Once per day. 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 If tolerating increase to 2 tablets daily 90 tablet 022 2021 Discontinued Active Problems Problem Noted Date Diagnosed Date Lower extremity edema 10/30/2023 NAFLD (nonalcoholic fatty liver disease) 023 Overview (07/04/2022): Mild hepatic stenosis noted on abdominal u/s from 2016 Healthcare maintenance 07/04/2022 Overview (07/04/2022): Mammo:06/01/2200-Ve-jdca-1 Pap: 2018 [facility], records not in chart C-scope:2012, negative. Referred to GI 03/2022 for repeat colonoscopy BMD: 11/2021, osteoporosis. Plan to reapeat 11/2023 HCV Screen: Neg 11/2021 HIV Screen: Neg 11/2021 Immunizations: Declines ALL Screening Labs: A1c 2020 5.5 Chronic pain 04/09/2022 Assessment & Plan (04/09/2022 10:26 AM EST): - Complex hx of chronic pain and neuropathy in hands, feet, back, neck and ankles - Most recent concern reported to previous PCP of hip pain-xrays ordered 11/2021 (not completed) and referral placed to [facility] per patient request - Referral placed to vascular 11/2021 for concern of LE swelling and varic Hypertension 04/09/2022 Overview (10/08/2022): - Amlodipine 5mg daily Maintenance: BMP: 08/2022 WNL Lipid Panel: 08/2022 EKG: Obtain baseline at f/u - Aerobic exercise to reduce BP. Initial goal of 30 min walk 3-5x/week. Increase as tolerated. - low-sodium diet (goal: <2g/day) and heart healthy diet such as DASH to reduce BP and prevent ASCVD. - Home BP monitoring 1-2 x day with goal of <140/90. - Seek immediate medical attention for chest pain, palpitations, SOB, syncope, or sudden changes in mental status. - Do not change or discontinue current prescriptions without first consulting health care provider Assessment & Plan (10/08/2022 12:35 PM EDT): BP elevated in office. Reports home BP well controlled. Does not want to adjust medications due to side effects concerns. Pt educated on risks of untreated of HTN Assessment & Plan (07/04/2022 2:02 PM EDT): Continue amlodipine 5mg daily Assessment & Plan (04/09/2022 10:36 AM EST): - Amlodipine 5mg daily - Monitoring BP at home, always in the green. Unable to recall specific readings - Unclear if taking medications consistently Maintenance: BMP: 11/2021 WNL Lipid Panel: 11/2021 LDL 162 ASCVD Risk: 6.8% EKG: Obtain baseline at f/u - Aerobic exercise to reduce BP. Initial goal of 30 min walk 3-5x/week. Increase as tolerated. - low-sodium diet (goal: <2g/day) and heart healthy diet such as DASH to reduce BP and prevent ASCVD. - Home BP monitoring 1-2 x day with goal of <140/90. - Seek immediate medical attention for chest pain, palpitations, SOB, syncope, or sudden changes in mental status. 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 Overview (07/04/2022): - 112mcg levothyroxine-reports only taking 1/2 tablet which pt feels better controls sx HISTORY - 11/2021 TSH 4.61 - Previously followed by [facility] endo, last seen 2017 Assessment & Plan (10/08/2022 12:33 PM EDT): Repeat TSH Assessment & Plan (07/04/2022 2:02 PM EDT): Repeat TSH today Assessment & Plan (04/09/2022 10:39 AM EST): - 112mcg levothyroxine-reports only taking 1/2 tablet which pt feels better controls sx HISTORY - 11/2021 TSH 4.61 - Previously followed by [facility] endo, last seen 2017 Osteoporosis 01/14/2022 Overview (10/08/2022): New diagnosis from DEXA scan 11/2021 which shows T-score value of -2.6 in the femoral neck No hx of chronic steroid use, autoimmune disease, malignancy Declines treatment with alendronate or calcium due to s/e concerns Pt has been repeatedly educated on risks of untreated osteoporosis including risk of MOF and decreased mobility Assessment & Plan (10/08/2022 12:30 PM EDT): Pt feels strongly that she does not want to take any medications or supplements for osteoporosis except for vitamin D Continue vitamin D supplementation Encouraged diet rich in calcium Encouraged weight bearing exercise-30 minutes daily Repeat Dexa scan 11/2023 Assessment & Plan (07/04/2022 2:01 PM EDT): Discussed with patient risks of foregoing treatment for osteoporosis including serious fracture, loss of mobility/independence and reduced life expectancy. Pt verbalizes understanding. Feels strongly that she does not want to take any medications or supplements for osteoporosis except for vitamin D Continue vitamin D supplementation Encouraged diet rich in calcium Encouraged weight bearing exercise-30 minutes daily Repeat Dexa scan 11/2023 Assessment & Plan (04/09/2022 10:24 AM EST): - Dx DEXA scan 11/2021, T-score -2.6 in femoral neck - No hx of chronic steroid use, autoimmune disease, malignancy - Declines tx with alendronate d/t s/e concerns. Risks of untreated osteoporosis discussed including worsening disease severity and MOF. Pt verbalizes understanding. - Continue calcium supplement 500mg daily - Continue vitamin D supplement 1000 units daily - Provided with list of calcium rich foods - Encouraged weight bearing exercise-30 minutes walking daily Cervical radiculopathy 02/26/2021 Diverticulosis of sigmoid colon 02/26/2021 Tendinitis of right rotator cuff 02/26/2021 Bilateral cataracts 12/24/2020 Mixed hyperlipidemia 03/28/2015 Overview (10/08/2022): Atorvastatin 20mg - Carotid artery u/s from 2012 with the following results: Plaque is present in the internal carotid arteries but velocity measurements are normal and there is no evidence to suggest a hemodynamically significant stenosis. - Pt with significant concerns re side effects. Not taking medication consistently - LDL 230 from 08/2022 + family hx of GA - Pt has been repeated educated on the risks of untreated high cholesterol including GA, CVA, HTN, and . Assessment & Plan (10/08/2022 12:29 PM EDT): Recheck lipids Assessment & Plan (07/04/2022 1:59 PM EDT): Continue atorvastatin 20mg Repeat lipids ordered, follow up pending results Assessment & Plan (04/09/2022 10:38 AM EST): - Previously c/o GI s/e from atorvastatin so was switched to rosuvastatin at last visit. Now requesting to switch back to atorvastatin d/t rosuvastatin s/e (myalgia) HISTORY - Carotid artery u/s from 2012 with the following results: Plaque is present in the internal carotid arteries but velocity measurements are normal and there is no evidence to suggest a hemodynamically significant stenosis. - Mild hepatic stenosis noted on abdominal u/s from 2016 Bipolar disorder 01/07/2014 Overview (07/04/2022): Followed by psychiatry and therapy Seroquel 25mg q. night Assessment & Plan (07/04/2022 1:58 PM EDT): Continue regimen per psychiatry/therapy Contact HC if sx worsen Assessment & Plan (04/09/2022 10:25 AM EST): - Well connected with psychiatry (Vidhya Mcmillna) and therapist (Suzi) - Takes Seroquel Asthma 09/22/2011 Overview (07/04/2022): Well controlled Flovent b.i.d Albuterol PRN Assessment & Plan (07/04/2022 1:58 PM EDT): Refill sent specifying pro air only if available. Continue flovent b.i.d Contact HC if sx worsen or do not respond to rescue inhaler Assessment & Plan (04/09/2022 10:25 AM EST): well managed with flovent b.i.d and PRN albuterol Resolved Problems Problem Noted Date Diagnosed Date Resolved Date Acquired hypothyroidism 03/28/201503/25 Chronic back pain 03/28/2015 04/09/2022 Encounters Date Type Department Care Team Description 12/27/2024 Telephone [facility] [address] [place] [address] MonroeIleana [facility] nov recall 11/26/2024 Refill [facility] [address] [place] [address] MonroeIleana [facility] Mild intermittent asthma without complication from Last 3 Months Immunizations Immunization Administration Dates Next Due Hep B, adult 01/27/2005,08/08/2002,06/25/2002 TD (adult), 2 Lf tetanus tox oid, preservative free, adsorbed 04/06/2022,10/16/2003,09/25/1997 Tdap 12/11/2015 Family History Medical History Relation Name Comments Coronary artery disease Father Hypertension Father GA Father Relation Name Status Comments Father Social History Tobacco Use Types Packs/Day Years Used Date Smoking Tobacco: Former Cigarettes Q uit: 2006 Smokeless Tobacco: Never Tobacco Cessation:Counseling Given: Not Answered Alcohol Use Standard Drinks/Week Comments Never 0 [...] Orientation Straight 02/22/2022 10 :15 AM EDT Last Filed Vital Signs Vital Sign Reading Time Taken Comments Blood Pressure 148/82 05/30/2024 3:13 PM EST Pulse 88 05/30/2024 2:28 PM EST Temperature 36.5 C (97.7 F) 05/30/2024 2:28 PM EST Respiratory Rate 20 05/30/2024 2:28 PM EST Oxygen Saturation 98% 05/30/2024 2:28 PM EST Inhaled Oxygen Concentration - - Weight 87.5 kg (193 lb) 05/30/2024 2:28 PM EST Height 152.4 cm (5') 05/30/2024 2:28 PM EST Body Mass Index 37.69 05/30/2024 2:28 PM EST Plan of Treatment Upcoming Encounters Date Type Department Care Team (Late st Contact Info) Description 02/27/2025 3:00 PM EST Office Visit [facility] [address] [place] [address] Monroe, Ileana, [employer] LO[employer] PROCESSOR [address] [place] [address] Health Maintenance Due Date Last Done Comments CT Colonography 1960 FIT DNA/Cologuard 1960 FIT 1960 FOBT 1960 Sigmoidoscopy 1960 Alcohol/Substance Use Screening 1970 Hepatitis A Vaccines (1 of 2 - Risk 2-dose series) 1977 Pneumococcal Vaccine: 50+ Years (1 of 2 - PCV) 1977 Zoster Vaccines (1 of 2) 2008 RSV Patients and Patients Aged 60 years or older (1 - Risk 60-74 years 1-dose series) 2018 Colonoscopy 04/25/2022 Colorectal Cancer Screening 04/25/2022 SDOH Screening 09/04/2023 09/03/2022 Bone Density Scan 11/24/2023 Mammogram 08/11/2024 08/12/2023, 02/0 10/2022, 12/22/2021, Additional history exists COVID-19 Vaccine ( season) 2024 Influenza Vaccine (#1) 2024 Depression Screening 05/30/2025 05/30/2024, 05/30/19 Tobacco Screening 07/02/2025 07/02/2024 Lipid Panel 08/07/2028 08/08/2023, 05/0 11/2022, 04/12/2022, Additional history exists DTaP/Tdap/Td Vaccines (3 - Td or Tdap) 04/06/2032 04/06/2022, 12/11/2015, 10/16/2003, Additional history exists Hepatitis B Vaccines Completed 01/27/2005, 08/08/2002, 06/25/2002 Hepatitis C Screening Discontinued 12/07/2021 HIB Vaccines Aged Out No longer eligi ble based on patient's age to complete this topic HPV Vaccines Aged Out No longer eligi ble based on patient's age to complete this topic IPV Vaccines Aged Out No longer eligi ble based on patient's age to complete this topic Meningococcal B Vaccine Aged Out No l onger eligible based on patient's age to complete this topic Meningococcal Vaccine Aged Out No nova opal eligible based on patient's age to complete this topic RSV under 20 months Aged Out No longe r eligible based on patient's age to complete this topic Rotavirus Vaccines Aged Out No longer eligible based on patient's age to complete this topic Procedures Procedure Name Priority Date/Time Associated Diagnosis Comments BI MAMMOGRAM SCREENING TOMOSYNTHESIS BILATERAL Routine 08/12/2023 3:15 PM EDT LIPID PANEL, STANDARD Routine 08/08/2023 11:58 AM EDT Mixed hyperlipidemia ZZZ HISTORICAL HEPATITIS C AB W/REFL TO HCV RNA, QN, PCR Routine 12/07/2021 10:21 AM EDT from Last 3 Months or Most Recently Relevant to Health Maintenance Results * BI Mammogram Screening Tomosynthesis Bilateral (08/12/2023 3:15 PM EDT) Anatomical Region Laterality Modality Breast Bilateral Mammography 08/12/2023 3:15 PM EDT Narrative 08/31/2023 10:05 AM EDT [facility] [address] [place] [address] Mammography Report Signed Patient: Suha Buck MR#: [id number] : 1960 Acct:[id number] Age/Sex: 63 / F ADM Date: 08/12/23 Loc: [facility] Attending Dr: Ileana Farley [employer] LO[employer] PROCESSOR Ordering Physician: Ileana Farley Results: 1Nega tive Date of Service: 08/12/23 Follow Up: 1 Year From Orig ina Mammogram Procedure(s): MM tomosynthesis screening BI Accession Number(s): [id number] cc: Ileana Farley EXAMINATION: MM SCREENING DIGITAL BREAST TOMOSYNTHESIS, BILATERAL CLINICAL INFORMATION: Screening. Asymptomatic. COMPARISON: Mammography: This study is compared with prior exams dating back to 2019. TECHNIQUE: Digital breast tomosynthesis is performed in both the craniocaudal and mediolateral oblique views along with computer-aided detection (CAD). Synthesized 2D images are generated from the tomosynthesis. FINDINGS: There are scattered areas of fibroglandular density (ACR BI-RADS breast composition Category b). There are no significant masses, abnormal calcifications, or other abnormalities. MM/MM tomosynthesis screening BI IMPRESSION: No mammographic evidence of malignancy. ASSESSMENT: BI-RADS BI-RADS 1 - Negative RECOMMENDATION: Routine annual mammography screening. 1 year F/U This examination should not preclude the clinical evaluation of a suspicious palpable abnormality. This patient's information was entered into a reminder system with a target due date for their next mammogram. Dictated By: Darcie Bhat MD Signed By: <Electronically signed by Darcie Bhat MD in OV> 08/31/23 1001 DD/ 1515 TD/TT: Sas Clinical Programmer: Procedure Note Donotuseinterpreter, Image - 08/31/2023 [facility] [address] [place], [place] [address] Mammography Report Signed Patient: Hussein Buck#: [id number] : 9Acct:[id number] Age/Sex: 63 / FADM Date: 08/12/23 Loc: [facility] Attending Dr: Ileana Farley M[employer] LOAN PROCESSOR Ordering Physician: Ileana Farley FNPResults: 1Nega tive Date of Service: 08/12/23Follow Up: 1 Year From Orig inal Mammogram Procedure(s): MM tomosynthesis screening BI Accession Number(s): [id number] cc: Ileana Farley MORTGAGE LOAN PROCESSOR EXAMINATION: MM SCREENING DIGITAL BREAST TOMOSYNTHESIS, BILATERAL CLINICAL INFORMATION: Screening. Asymptomatic. COMPARISON: Mammography: This study is compared with prior exams dating back to 2019. TECHNIQUE: Digital breast tomosynthesis is performed in both the craniocaudal and mediolateral oblique views along with computer-aided detection (CAD). Synthesized 2D images are generated from the tomosynthesis. FINDINGS: There are scattered areas of fibroglandular density (ACR BI-RADS breast composition Category b). There are no significant masses, abnormal calcifications, or other abnormalities. MM/MM tomosynthesis screening BI IMPRESSION: No mammographic evidence of malignancy. ASSESSMENT: BI-RADS BI-RADS 1 - Negative RECOMMENDATION: Routine annual mammography screening. 1 year F/U This examination should not preclude the clinical evaluation of a suspicious palpable abnormality. This patient's information was entered into a reminder system with a target due date for their next mammogram. Dictated By: Darcie Bhat MD Signed By: <Electronically signed by Darcie Bhat MD in OV> 08/31/23 1001 DD/ 1515 TD/TT: Sas Clinical Programmer: [facility] IMG BI PROCEDURES Final Resul t * (ABNORMAL) Lipid Panel, Standard (08/08/2023 11:58 AM EDT) Triglycerides 160(H) <150 mg/dL [facility] Comment:Desirable Triglyceri de: less than 150 mg/dLBorderline High Triglyceride 150-199 mg/dLHigh Triglyceride: 200-499 mg/dLVery High Triglyceride: greater than or equal to 5OO mg/dL Cholesterol 243(H) <200 mg/dL [facility] Comment:Desirable Cholestero l: less than 200 mg/dLBorderline High Cholesterol: 200-239 mg/dLHigh Cholesterol: greater than 239 mg/dL LDL Cholesterol Calculated 155(H) <100 mg/dL [facility] Comment:Desirable LDL: less than 100 mg/dLNear Optimal/Above Optimal LDL: 110- 129 mg/dLBorderline High LDL: 130-159 mg/dLHigh LDL: 160-189 mg/dLVery High LDL: greater than or equal to 190 mg/dL HDL Cholesterol 56 >40 mg/dL [facility] Comment:Desirable HDL: great er than 40 mg/dL Note: This HDL assay may give artificially low results in patients with liver disease. Blood Venous blood specimen / Unknown 08/08/2023 11:58 AM EDT 08/08/2023 12:01 PM EDT [facility] LAB BLOOD ORDERABLES Final Re sult [facility] [address] [place] [address] [phone] * HEPATITIS C AB W/REFL TO HCV RNA, QN, PCR (12/07/2021 10:21 AM EDT) HEPATITIS C ANTIBODY NON-REACT MELITA NON-REACT MELITA [facility] INDEX 0.10 <1.00 [facility] Comment: HCV antibody was non-reactive. There is no laboratory evidence of HCV infection. In most cases, no further action is required. However, if recent HCV exposure is suspected, a test for HCV RNA (test code 05599) is suggested. For additional information please refer to http://education.Spongecell/faq/YNT04d6 (This link is being provided for informational/ educational purposes only.) 12/07/2021 10:2 1 AM EDT Farhana [facility] HISTORICAL/NON ORDERABLE LABS Final Result [facility] [address] from Last 3 Months or Most Recently Relevant to Health Maintenance Insurance * Guarantor: Suha Buck Account Type Relation to Patient Date of Phone Billing Address Personal/Family Self 1960 [address] [place] [address] [facility] [employer] ([employer]) [place] [phone] * Guarantor: Suha Buck Account Type Relation to Patient Date of Phone Billing Address Personal/Family Self 1960 [address] [place] [address] * Guarantor: Suha Buck Account Type Relation to Patient Date of Phone Billing Address Personal/Family Self 1960 [address] [place] [address] Care Teams Jewel Hole Cornerer Relationship Specialty Start Date End Date MartineIelana FNP [address] [place] [address] [place] [address] PCP - General Family Medicine 12/19/21
--- OUTSIDE RECORDS SUMMARY | 2025-02-14 11:34 | XMS_ITS | Encounter Summary ---
Author Organization [employer] Address [address] [facility] [address] [place] [address] Care Team Providers Care Operating Engineer Name Role Phone [facility] Primary Care Provider [phone] Encounter Details Date Type Department Care Team ([facility] Contact Info) Description 08/02/2024 Telephone [facility] [address] [place], [place] [phone] [facility] [address] [place], [place] [phone] Social History Tobacco Use Types Packs/Day Years [...] Description 02/27/2025 3:00 PM EST Office Visit [facility] [address] [place] [address] Ileana Farley FNP [address] [place] [address] documented as of this encounter Visit Diagnoses Not on filedocumented in this encounter Additional Health Concerns Assessment Noted Time PHQ-9 Depression Total Score: 0 05/30/19 25 2:37 PM EST documented as of this encounter Care Teams Operating Engineer Relationship Specialty Start Date End Date Ileana Farley FNP [address] [place] [address] PCP - General Family Medicine 12/19/21 documented as of this encounter
--- OUTSIDE RECORDS SUMMARY | 2025-02-14 11:35 | XMS_ITS | Encounter Summary ---
Author Organization [employer] Address [address] [place] [address] 7 [place] [address] Care Team Providers Care Standard Machine Stitcher Name Role Phone [facility] Primary Care Provider [phone] Reason for Visit * Reason Comments Med Change Request Encounter Details Date Type Department Care Team ([facility] st Contact Info) Description 10/10/2022 Refill [facility] [address] [place], [place] [phone] [facility] [address] [place] [address] Abdominal bloating Social History Tobacco Use Types Packs/Day Years Used Date Smoking Tobacco: Former Cigarettes Q uit: 2006 Smokeless Tobacco: Never Alcohol Use Standard Drinks/Week Comments Never 0 (1 standard drink = 0.6 oz pur e alcohol) Depression Answer Date Recorded Patient Health Questionnaire-9 Score 0 09/03/2022 Depression Answer Date Recorded Patient Health Questionnaire-2 Score 0 09/03/2022 Comments Unknown Sex and Gender Information Value Date Recorded Sex Assigned at Female 02/22/2022 10:15 AM EDT Legal Sex Female 10:15 AM EDT Gender Identity Female 02/22/2022 10:15 AM EDT Sexual Orientation Straight 02/22/2022 10 :15 AM EDT COVID-19 Exposure Response Date Recorded In the last 10 days, have yo u been in contact with someone who was confirmed or suspected to have Coronavirus/COVID-19? No / Unsure 10/06/2022 1:54 PM EDT documented as of this encounter Miscellaneous Notes * Telephone Encounter - Cielo Richardson RN - 10/14/2022 11:28 AM EDT Placed call to pt regarding message below. Pt informed of situation and med sent to [facility] pharmacy instead. Pt states she will try to have someone bring her to lemon picker the med or have someone pick it up for her. I f she cannot find transportation or someone to do the favor she will come in for visit on 10/21/22 and pick it up then. * Telephone Encounter - FAROOQ Michaud - 10/13/2022 4:57 PM EDT Thank you for checking! Med sent to [facility] pharmacy. Please call to inform pt. * Telephone Encounter - Cielo Richardson RN - 10/13/2022 3:54 PM EDT Placed call to [facility] pharmacy regarding alternatives as [facility] would not inform of options. Any generic Metamucil would be suffice but if pt wants to be guaranteed coverage of fiber powder rx can be sent to this pharmacy? * Telephone Encounter - FAROOQ Michaud - 10/12/2022 5:10 PM EDT Please call pharmacy to see if they have similar product available, and cue rx if available. Per review of documentation, note from 09/03/22: 4. Abdominal bloating Start day metamucil for digestive health - psyllium (Konsyl) 60.3 % powder; Take 4.98 g (3 g of fiber) by mouth in the morning. Dispense: 150 g; Refill: 11 documented in this encounter Plan of Treatment Upcoming Encounters Date Type Department Care Team (Late st Contact Info) Description 02/27/2025 3:00 PM EST Office Visit [facility] [address] [place] [address] Ileana Farley FNP [address] [place] [address] documented as of this encounter Visit Diagnoses Diagnosis Abdominal bloating Flatulence, eructation, and gas pain documented in this encounter Additional Health Concerns Assessment Noted Time PHQ-9 Depression Total Score: 0 09/04/19 23 3:34 PM EDT documented as of this encounter Care Teams Standard Machine Stitcher Relationship Specialty Start Date End Date Ileana Farley FNP [address] [place] [address] PCP - General Family Medicine 12/19/21 documented as of this encounter
--- OUTSIDE RECORDS SUMMARY | 2025-02-14 11:35 | XMS_ITS | Encounter Summary ---
Author Organization [employer] Address [address] [place] [address] 7 [place] [address] Care Team Providers Care Jig Operator Name Role Phone [facility] Primary Care Provider [phone] Reason for Visit * Reason Onset Date Comments Nurse Triage 07/13/2023 Encounter Details Date Type Department Care Team ([facility] st Contact Info) Description 07/13/2023 Telephone [facility] [address] [place], [place] [phone] [facility] [address] [place], [place] [phone] Nurse Triage Social History Tobacco Use Types Packs/Day Years [...] AM EDT documented as of this encounter Miscellaneous Notes * Telephone Encounter - Marsha Ngo RN - 07/13/2023 3:40 PM EDT Triage call Pt reports swollen lymph nodes under right arm which is causing pain to radiate to other areas all along the right side of body. Pt is adamant that this is not shoulder pain. Pt reportsbeing able to feel very small pea sized lymph nodes that can only be felt when sitting up. Pt is able to go about daily activities. Pt is requesting a full body scan as advised by [facility] nurse. Pt is concerned there could be a tumor in there . Pt voiced that this problem hasn't been taken seriously and this has been going on for a long time. Pt doesn't have a history of cancer. Denies difficulty breathing though Pt reports, I feel pain in my right lung . Pt is taking extra strength tylenol for the discomfort and is waiting to see if it is effective. Apt with PCP [facility] 07/27/23 @ 330pm . Insurance is verified as active prior to booking. Pt agrees with disposition and home care advised. Protocol Used: Arm Pain (Adult) Protocol-Based Disposition: See in Office or Video Visit within 2 Weeks Video visit not offered Positive Triage Question: * Arm pain is a chronic symptom (recurrent or ongoing AND lasting > 4 weeks) * All higher-acuity triage questions were negative Care Advice Discussed: * Pain Medicines * Pain Medicines - Extra Notes and Warnings * Reasons To Call Back - Moderate pain (e.g., interferes with normal activities) lasts more than 3 days - Mild pain lasts more than 7 days - Arm swelling occurs - Signs of infection occur (e.g., spreading redness, warmth, fever) - You become worse * Use a Cold Pack for Pain * Use Heat After 48 Hours for Pain * Local Heat (Shower Option) * Telephone Encounter - Tiara Polanco - 07/13/2023 2:54 PM EDT Symptom: Shoulder Pain - Not From Injury Outcome: Schedule an appointment to be seen within 24 hours Reason: Caller denied all higher acuity questions The caller accepted this outcome Pt requesting Ct Scan Order by [facility] recommendation documented in this encounter Plan of Treatment Upcoming Encounters Date Type Department Care Team (Late st Contact Info) Description 02/27/2025 3:00 PM EST Office Visit [facility] [address] [place] [address] Ileana Farley FNP [address] [place] [address] documented as of this encounter Visit Diagnoses Not on filedocumented in this encounter Additional Health Concerns Assessment Noted Time PHQ-9 Depression Total Score: 0 09/04/19 23 3:34 PM EDT documented as of this encounter Care Teams Jig Operator Relationship Specialty Start Date End Date Ileana Farley FNP [address] [place] [address] PCP - General Family Medicine 12/19/21 documented as of this encounter
--- OUTSIDE RECORDS SUMMARY | 2025-02-14 11:35 | XMS_ITS | Encounter Summary ---
Author Organization [employer] Address [address] [place] [address] 7 [place] [address] Care Team Providers Care Science Writer Name Role Phone [facility] Primary Care Provider [phone] Reason for Visit * Reason Onset Date Comments PT1 02/23/2023 PT1 Pending 02/23/2023 Encounter Details Date Type Department Care Team ([facility] st Contact Info) Description 02/23/2023 Telephone [facility] 230 [place], [place] [phone] [facility] [address] [place] [address] PT1; PT1 Pending Social History Tobacco Use Types Packs/Day Years [...] encounter Miscellaneous Notes * Telephone Encounter - Gloria Carter - 02/23/2023 2:19 PM EDT Patient will receive a letter in the mail with approval or denial. PT-1 Request [id number] is Pending * Telephone Encounter - Tiara Polanco - 02/23/2023 11:46 AM EDT Tc from pt requesting PT1 transportation Date: 03/01/2023 Time: 2:00 Visits: n/a Address: [address] [place] [address] Facility: [facility] Dental Wheel Chair: no/cane Accuracy Expert Needed: no documented in this encounter Plan of Treatment Upcoming Encounters Date Type Department Care Team (Late st Contact Info) Description 02/27/2025 3:00 PM EST Office Visit [facility] [address] [place] [address] Ileana Farley FNP [address] [place] [address] documented as of this encounter Visit Diagnoses Not on filedocumented in this encounter Additional Health Concerns Assessment Noted Time PHQ-9 Depression Total Score: 0 09/04/19 23 3:34 PM EDT documented as of this encounter Care Teams Science Writer Relationship Specialty Start Date End Date Ileana Farley FNP [address] [place] [address] PCP - General Family Medicine 12/19/21 documented as of this encounter
--- OUTSIDE RECORDS SUMMARY | 2025-02-14 11:35 | XMS_ITS | Clinical Summary ---
Author Organization [facility] Address [address] [place] [address] Phone Care Team Providers Care Artificial Foliage Arranger Name Role Phone Pcp, Not Required Primary [...] 2008 OSTEOPOROSIS SCREENING INITI AL (ONE-TIME) 2023 INFLUENZA VACCINE (#1) 2024 COVID-19 VACCINE (1 - 2024-2 6 season) 2024 RSV VACCINE (1 - 1-dose 75+ series) [...] MEDICARE PART A & B Care Teams Artificial Foliage Arranger Relationship Specialty Start Date End Date Pcp, Not Required [address] [place] [address] PCP - General 03/19/24 Additional Source Comments The information contained in this document represents components of the legal health record. It is not the complete legal health record.[facility]
--- OUTSIDE RECORDS SUMMARY | 2025-02-14 11:35 | XMS_ITS | Encounter Summary ---
Author Organization [employer] Address [address] [place] [address] 7 [place] [address] Care Team Providers Care Melter Helper Name Role Phone [place] [facility] Primary Care Provider [phone] Reason for Visit * Reason Onset Date Comments Referral 08/22/2023 Encounter Details Date Type Department Care Team ([facility] st Contact Info) Description 08/22/2023 Telephone [facility] [address] [place], [place] [phone] [facility] [address] [place], [place] [phone] Referral Social History Tobacco Use Types Packs/Day Years [...] encounter Miscellaneous Notes * Telephone Encounter - Yara Alvarado RN - 08/22/2023 10:14 AM EDT Please see below. Pt is requesting a referral to [facility] for her R hand. Per OV note on 06/24/22 in HPI: Would like referral to [facility] Paronychia of finger of right hand Finger unremarkable on exam. Will rx bactroban as patient seems to be describing occasional episodes of paronychia. Referral placed to hand specialist per patient request However, this referral was processed to [facility] ortho (Dr. Garcia). Please review and place new referral to [facility] if agreeable. * Telephone Encounter - Tiara Polanco - 08/22/2023 8:03 AM EDT Tc from pt requesting a referral for [facility] stated PCP already know about hand conditions, any questions contact pt. documented in this encounter Plan of Treatment Upcoming Encounters Date Type Department Care Team (Late st Contact Info) Description 02/27/2025 3:00 PM EST Office Visit [facility] [address] [place] [address] [place], [place]le[place], [facility] [address] [place] [address] documented as of this encounter Visit Diagnoses Not on filedocumented in this encounter Additional Health Concerns Assessment Noted Time PHQ-9 Depression Total Score: 0 09/04/19 23 3:34 PM EDT documented as of this encounter Care Teams Melter Helper Relationship Specialty Start Date End Date Ileana Farley FNP [address] [place] [address] PCP - General Family Medicine 12/19/21 documented as of this encounter
--- OUTSIDE RECORDS SUMMARY | 2025-02-14 11:35 | XMS_ITS | Encounter Summary ---
Author Organization [employer] Address [address] [place] [address] 7 [place] [address] Care Team Providers Care A&P Technician Name Role Phone [facility] Primary Care Provider [phone] Reason for Visit * Reason Onset Date Comments Med Refill 06/01/2024 Encounter Details Date Type Department Care Team ([facility] st Contact Info) Description 06/01/2024 Refill [facility] 230 [place], [place] [phone] [facility] [address] [place] [address] Mild intermittent asthma without complication Social History Tobacco Use Types Packs/Day Years [...] encounter Miscellaneous Notes * Telephone Encounter - Natali Tam LPN - 06/01/2024 11:57 AM EST Next appointment 06/29/24. Levothyroxine was sent to [id number] on 04/04/24 #90 with 1 refill. * Telephone Encounter - Will Giron - 06/01/2024 11:51 AM EST TC from pt requesting medication refill. Medications needing refill: albuterol (Ventolin HFA) 108 (90 Base) MCG/ACT inhaler levothyroxine (Synthroid, Levoxyl) 112 MCG tablet To be sent to: [facility]/pharmacy #[id number] - [address] documented in this encounter Plan of Treatment Upcoming Encounters Date Type Department Care Team (Late st Contact Info) Description 02/27/2025 3:00 PM EST Office Visit [facility] 230 [place], [place] [phone] [place] Ileana [facility] 230 [place], [place] [phone] documented as of this encounter Visit Diagnoses Diagnosis Mild intermittent asthma without complication documented in this encounter Additional Health Concerns Assessment Noted Time PHQ-9 Depression Total Score: 0 05/30/19 25 2:37 PM EST documented as of this encounter Care Teams A&P Technician Relationship Specialty Start Date End Date Ileana Farley FNP [address] [place] [address] PCP - General Family Medicine 12/19/21 documented as of this encounter
== END 2025-02-14 09:58 | disposition home or self-care (01) ==
LOC: HO.XRAY 09:57
PROVIDERS: PCP Registered Nurse; Visit Provider Internal Medicine
DX: R14.0 Abdominal distension (gaseous) (principal)
CPT/HCPCS: 74246

== ENCOUNTER → 2025-02-14 09:59 | Outpatient (BNV) | payer OTHER, SELFPAY | PROVIDERS: PCP Registered Nurse; Visit Provider Radiology Diagnostic Radiology | DX: R14.0 Abdominal distension (gaseous) (principal); K21.9 Gastro-esophageal reflux disease without esophagitis | CPT/HCPCS: 74246 ==

== ENCOUNTER 2025-02-25 11:46 | Outpatient (AMB) | payer OTHER, SELFPAY ==
--- OUTSIDE RECORDS SUMMARY | 2024-06-25 11:18 | XMS_ITS | Continuity of Care Document ---
Author Organization [facility] Address [address] [place] [address] Dr [address] [place] [address] Phone Care Team Providers Care Oil Well Cable Tool Driller Name Role Phone Kody GARZON, STEPHANIE, Valentin ARROYO Unavailable U navailable Procedures Procedure Date Offic Cons New/estab Mod-hi 60- CT & [place] Duplex Scan-extrem Veins; Comp- CT & [place] Advance Directives Directive Yes / No Effective Date File Name No Information Encounters Encounter Description Practice Location Reason(s) For Visit Diagnoses Date Provider Providers Copied on Encounter [facility], [address] [place] [address] Dr Mcdaniel [address]Lise [place], [id number], tel:[phone] [facility] No Information 5 Kody GARZON, DINA BROWN. [address] [place] [address], [id number] , [place]. tel:[phone] Offic Cons New/estab Mod-hi 60- CT & [place] [facility], [address] [place] [address] Dr Mcdaniel [address]Lise [place], [id number], tel:[phone] [facility] Chronic venous hypertension (idiopathic) with other complications of bilateral lower extremityLymphe gerri, not elsewhere classifiedHered itary lymphedemaCramp and spasmLocalized edema 5 Kody GARZON RVT, RPVI Robert. [address] [place] [address] ld, [place], [id number] , [place]. [phone] [facility], [address] [facility] [address], [place], [id number], [place] tel:[phone] [facility] [place] Chronic venous hypertension (idiopathic) with other complications of bilateral lower extremity 5 Kody GARZON, RVT, RPWANG Hanson. [address] [facility], [address], [place], [place], [id number] , [place]. [phone] Referring Provider: [facility], [facility] Walk-in Center [address] [place], [address]. tel:[phone] Family History Family Member Type Diagnosis Age At Onset No Information Payers Payer name Insurance type Covered libertarian ID Parish marcus(s) [facility] [id number] Social History Type Description Quantity Date Captured Comments Sex Female Smoking Status No Information Chief Complaint And Reason For Visit No Information Reason For Referral Reason For Referral No Information Plan Of Treatment Date Type Action Status Goal Diet education completed Referral Ordered: Weight management: Referral to physician timeframe: 3 Months (related to Body mass index (BMI) 35.0-35.9, adult) ordered History Of Present Illness Encounter Date Complaint [...]
--- NOTE | 2025-02-25 11:46 | MHC.OFFVIS ---
Intake Visit Reasons: 3 month follow up abdominal bloating Intake Note: Suha presents as a telehealth today. CC: she is questioning a hernia because she has pains and bloating in her abdomen. She denies constipation and diarrhea. Women'S Ministry Director Required: No Allergies Penicillins (PENICILLINS) Allergy (Unknown, Verified 05/14/24 14:28) ANAPHYLAXIS HPI Comments Details: This is a 62 y.o F who is here for follow up. 09/21/22: She is due for colorectal screening. Pt does not have personal or family hx of colon polyps or colorectal cancer. No abd pain, N,V,D, blood in stool or unintentional weight loss. Last colonoscopy was in her 30s, does not remember the indication but was told that she did not have polyps at that time. 10/25/24: Pt elected to have a cologuard after last visit which was negative. Here as telehealth for abd symptoms and weight gain. Reports initially attributed this to hypothyroidism but now despite being on levothyroxine she continues to gain weight slowly but steadily. Reports weighs around 190 lbs i.e BMI 37. Alongside she also reports epigastric discomfort and bloating devorah after eating. Doesn?t matter what she eats. Has been avoiding certain foods and has incorporated more vegetables now. 02/25/25: Here for follow up Seen as telehealth. Results of UGIS reviewed, mild reflux. Pt reports sx of bloating and belching at least 2-3 times a week. Remains hesitant to take any pharmacotherapy but ok to trial anti-secretory short term. She is also interested in natural remedies if available. Was referred to bariatrics at last visit but pt was hesitant to proceed at that time. Interested in setting up a consultation now. Number provided. [facility] Medical History Vitamin D deficiency Depression Asthma Hypothyroid Surgical History History of esophagogastroduodenoscopy (EGD) Hx of colonoscopy History of excision of mass History of umbilical hernia repair History of arthroscopic knee surgery Family History Mother Asthma Father History of open heart surgery Social History Alcohol intake: never Patient Tobacco Use Status: Never used Tobacco Current occupational status: disabled Current occupation: rt hand Review of Systems Const All systems reviewed & are unremarkable except as noted in HPI and below Physical Exam Exam Exam: televisit Telehealth Telehealth Telehealth Platform: Telephone Location of provider rendering services: practice address Location of patient: address on file Patient Identification confirmed using: Name, : Yes Telehealth method: voice only Patient verbally consented to treatment: Yes Patient verbally consented to billing insurance company: Yes Patient informed of any privacy concerns related to visit: Yes Minutes spent on Phone/Video with Pt.: 12 Results Reviewed Results Reviewed: Small sliding hiatal hernia with moderate gastroesophageal reflux into the upper esophagus. Mild increased gastric secretions likely secondary to hyperacidity. Assessment & Plan Assessment & Plan (1) GERD (gastroesophageal reflux disease): Code(s): K21.9 - Gastro-esophageal reflux disease without esophagitis Category: Medical (2) Obesity: Code(s): E66.9 - Obesity, unspecified Category: Medical (3) Bloating: Code(s): R14.0 - Abdominal distension (gaseous) Category: Medical Plan Discussed with the pt that s/sx consistent with reflux disease. Majority of the time was spent discussing lifestyle and diet modifications. Pt also agreeable to short term H2 Blockers. She is also interested in weight management program and encouraged that at least 10% TBW loss may also help with GERD. We also reviewed alternative medicines such as iberogast which may help with symptomatic management in some patients if she is interested. Plan: - Famotidine 20 once daily x 8 weeks - GERD diet reviewed - Phone number provided for bariatric med office Follow up 6 months Medications: New famotidine 20 mg PO BEDTIME 90 tabs 0RF Coding Level of Care Code Tele Est Pt Level 4 (95093) Diagnoses GERD (gastroesophageal reflux disease) K21.9 Obesity E66.9 Bloating R14.0
--- OUTSIDE RECORDS SUMMARY | 2025-02-25 14:59 | XMS_ITS | Encounter Summary ---
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 Social History [...] 02/27/2025 3:00 PM EST Office Visit [facility]IC[facility] [address] [place] [address] Ileana Farley FNP [address] [place] [address] documented as of this encounter Visit Diagnoses Diagnosis 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
--- OUTSIDE RECORDS SUMMARY | 2025-02-25 14:59 | XMS_ITS | Patient Health Record ---
Author Organization [facility] Address [address] [place] [address] Care Team Providers Care Refueling Ramp Attendant Name Role Phone Sesar Dobbs Jr Reason For Referral No Information Plan Of Treatment No Information
--- OUTSIDE RECORDS SUMMARY | 2025-02-25 14:59 | XMS_ITS | Encounter Summary ---
Author Organization [employer] Address [address] [facility] 7t [place] [address] Care Team Providers Care Green Chain Offbearer Name Role Phone [facility] Primary Care Provider [phone] Encounter Details Date Type Department Care Team ([facility] Contact Info) Description 08/02/2024 Telephone [facility] 230 [place], [place] [phone] [facility] [facility] 230 [place], [place] [phone] Social History Tobacco Use Types Packs/Day Years [...] Description 02/27/2025 3:00 PM EST Office Visit [facility] [address] [place] [address] Ileana Farley FNP 230 [place] [address] documented as of this encounter Visit Diagnoses Not on filedocumented in this encounter Additional Health Concerns Assessment Noted Time PHQ-9 Depression Total Score: 0 05/30/19 25 2:37 PM EST documented as of this encounter Care Teams Green Chain Offbearer Relationship Specialty Start Date End Date Ileana Farley FNP 230 [place] [address] PCP - General Family Medicine 12/19/21 documented as of this encounter
--- OUTSIDE RECORDS SUMMARY | 2025-02-25 14:59 | XMS_ITS | Clinical Summary ---
Author Organization [email or web address] Address [address] [facility] 7t [place] [address] Care Team Providers Care Potato Peeling Machine Operator Name Role Phone Salters [facility] Primary Care Provider Allergies Active Allergy Reactions Criticality Noted Date [...] from 2016 Healthcare maintenance 07/04/2022 Overview (07/04/2022): Mammo:06/01/2222-Vr-amqn-1 Pap: 2018 [facility], records not in chart C-scope:2012, negative. Referred [...] 11/2021 TSH 4.61 - Previously followed by [facility] endo, last seen 2017 Assessment & Plan (10/08/2022 12:33 PM EDT): Repeat TSH Assessment & Plan (07/04/2022 2:02 PM EDT): Repeat TSH today Assessment & Plan (04/09/2022 10:39 AM EST): - 112mcg levothyroxine-reports only taking 1/2 tablet which pt feels better controls sx HISTORY - 11/2021 TSH 4.61 - Previously followed by [facility] endo, last seen 2017 Osteoporosis 01/14/2022 Overview [...] 230 from 08/2022 + family hx of NV - Pt has been repeated educated on the risks of untreated high cholesterol including NV, CVA, HTN, and . Assessment & Plan [...] EST): - Well connected with psychiatry (Vidhya Mcmillan) and therapist (Suzi) - Takes Seroquel Asthma [...] Encounters Date Type Department Care Team Description 02/14/2025 Orders Only [facility] External Provider, [facility] 12/27/2024 Telephone [facility] [address] [place] [address] [facility] nov recall 11/26/2024 Refill [facility] [address] [place] [address] [facility] Mild intermittent asthma without complication from Last 3 Months Immunizations Immunization Administration Dates Next Due Hep B, adult 01/27/2005,08/08/2002,06/25/2002 TD (adult), 2 Lf tetanus tox oid, preservative free, adsorbed 04/06/2022,10/16/2003,09/25/1997 Tdap 12/11/2015 Family History Medical History Relation Name Comments Coronary artery disease Father Hypertension Father NV Father Relation Name Status Comments Father Social [...] Description 02/27/2025 3:00 PM EST Office Visit [facility] [address] [place] [address] SaltersIleana, S[facility] LINE [address] [place] [address] Health Maintenance Due Date Last Done Comments [...] 12/22/2021, Additional history exists COVID-19 Vaccine ( - season) 2024 Influenza Vaccine (#1) 2024 Depression [...] Procedure Name Priority Date/Time Associated Diagnosis Comments FL UPPER GI W AIR Routine 02/14/2025 10: 18 AM EDT BI MAMMOGRAM SCREENING TOMOSYNTHESIS BILATERAL Routine 08/12/2023 3:15 PM EDT LIPID PANEL, STANDARD Routine 08/08/2023 11:58 AM EDT Mixed hyperlipidemia ZZZ HISTORICAL HEPATITIS C AB W/REFL TO HCV RNA, QN, PCR Routine 12/07/2021 10:21 AM EDT from Last 3 Months or Most Recently Relevant to Health Maintenance Results * FL upper GI w air (02/14/2025 10:18 AM EDT) Anatomical Region Laterality Modality Body Radiographic [place] ging 02/14/2025 10:1 8 AM EDT Narrative 02/14/2025 1:34 PM EDT [place] [address] Fluoroscopy Report Signed Patient: Suha Buck MR#: [id number] : 1960 Acct:[id number] Age/Sex: 64 / F ADM Date: 02/14/25 Loc: HO.XRAY Attending Dr: Hope Orona MD Ordering Physician: Hope Orona MD Date of Service: 02/14/25 Procedure(s): FL upper GI w air Accession Number(s): [id number] cc: SaltersIleana SORT LINE; Hope Orona MD Reason for Exam: R14.0 - Abdominal distension (gaseous) EXAMINATION: XR FLUOROSCOPY UPPER GI WITH AIR CLINICAL INFORMATION: Abdominal distention and pain. COMPARISON: None available. TECHNIQUE: Routine upper GI air contrast study was performed in upright and lying position. FINDINGS: Following oral administration of thick barium and effervescent granules there is normal propagation bolus from the oral cavity through the pharynx, esophagus into stomach without any evidence of obstruction, narrowing or stricture. There is no intraluminal filling defect or extrinsic compression. Mild prominence of cricoesophageal sphincter seen but no obstruction noted. On placing patient in supine and prone lying the course, caliber and peristalsis of the stomach, duodenal bulb and the sweep is normal. Mild increased gastric secretions are noted. The mucosal pattern of the stomach, duodenal bulb and sweep is normal. There is moderate gastroesophageal reflux with a small sliding hiatal hernia in right lateral decubitus view. FLUOROSCOPY TIME: 2 minute and 4 seconds. DOSE AREA PRODUCT: 4 uGy-m2 (microgray-meter squared) FL/FL upper GI w air IMPRESSION: Small sliding hiatal hernia with moderate gastroesophageal reflux into the upper esophagus. Mild increased gastric secretions likely secondary to hyperacidity. Electronically signed by: Russell Jackson MD 02/14/2025 01:31 PM EDT Dictated By: Russell Jackson MD Signed By: <Electronically signed by Rsusell Jackson MD in OV> 02/14/25 1331 DD/ 1018 TD/TT: 02/14/25 1042 Timing Inspector: [facility] Procedure Note Donotuseinterpreter, Image - 02/14/2025 [place] [address] Fluoroscopy Report Signed Patient: Hussein Buck#: [id number] : 9Acct:[id number] Age/Sex: 64 / FADM Date: 02/14/25 Loc: DUNG Attending Dr: Hope Orona MD Ordering Physician: Hope Orona MD Date of Service: 02/14/25 Procedure(s): FL upper GI w air Accession Number(s): [id number] cc: MartineIleana fuchs SORT LINE; Hope Orona MD Reason for Exam: R14.0 - Abdominal distension (gaseous) EXAMINATION: XR FLUOROSCOPY UPPER GI WITH AIR CLINICAL INFORMATION: Abdominal distention and pain. COMPARISON: None available. TECHNIQUE: Routine upper GI air contrast study was performed in upright and lying position. FINDINGS: Following oral administration of thick barium and effervescent granules there is normal propagation bolus from the oral cavity through the pharynx, esophagus into stomach without any evidence of obstruction, narrowing or stricture. There is no intraluminal filling defect or extrinsic compression. Mild prominence of cricoesophageal sphincter seen but no obstruction noted. On placing patient in supine and prone lying the course, caliber and peristalsis of the stomach, duodenal bulb and the sweep is normal. Mild increased gastric secretions are noted. The mucosal pattern of the stomach, duodenal bulb and sweep is normal. There is moderate gastroesophageal reflux with a small sliding hiatal hernia in right lateral decubitus view. FLUOROSCOPY TIME: 2 minute and 4 seconds. DOSE AREA PRODUCT: 1953 uGy-m2 (microgray-meter squared) FL/FL upper GI w air IMPRESSION: Small sliding hiatal hernia with moderate gastroesophageal reflux into the upper esophagus. Mild increased gastric secretions likely secondary to hyperacidity. Electronically signed by: Russell Jackson MD 02/14/2025 01:31 PM EDT Dictated By: Russell Jackson MD Signed By: <Electronically signed by Russell Jackson MD in OV> 02/14/25 1331 DD/ 1018 TD/TT: 02/14/25 1042 Timing Inspector: AN[facility] Exter nal Provider IMG FLUOROSCOPY PROCEDURES Edited Result - Final * BI Mammogram Screening Tomosynthesis Bilateral (08/12/2023 3:15 PM EDT) Anatomical Region Laterality Modality Breast Bilateral Mammography 08/12/2023 3:15 PM EDT Narrative 08/31/2023 10:05 AM EDT [facility] [address] [place] [address] Mammography Report Signed Patient: Suha Buck MR#: [id number] : 1960 Acct:[id number] Age/Sex: 63 / F ADM Date: 08/12/23 Loc: TRISTA Attending Dr: Ileana Farley SORT LINE Ordering Physician: Ileana Farley SORT LINE Results: 1Nega tive Date of Service: 08/12/23 Follow Up: 1 Year From Orig inal Mammogram Procedure(s): MM tomosynthesis screening BI Accession Number(s): [id number] cc: Ileana Farley SORT LINE EXAMINATION: MM SCREENING DIGITAL BREAST TOMOSYNTHESIS, BILATERAL [...] in OV> 08/31/23 1001 DD/ 1515 TD/TT: Timing Inspector: Procedure Note Donotuseinterpreter, Image - 08/31/2023 [facility] [address] [place] [address] Mammography Report Signed Patient: Hussein Buck#: [id number] : 9Acct:[id number] Age/Sex: 63 / FADM Date: 08/12/23 Loc: TRISTA Attending Dr: Ileana TRIVEDI Ordering Physician: Ileana Farley FNPResults: 1Nega tive Date of Service: 08/12/23Follow Up: 1 Year From Orig inal Mammogram Procedure(s): MM tomosynthesis screening BI Accession Number(s): [id number] cc: [facility] EXAMINATION: MM SCREENING DIGITAL BREAST TOMOSYNTHESIS, BILATERAL [...] in OV> 08/31/23 1001 DD/ 1515 TD/TT: Timing Inspector: [facility] SORT LINE IMG BI PROCEDURES Final Resul t * (ABNORMAL) Lipid Panel, Standard (08/08/2023 11:58 AM EDT) Triglycerides 160(H) <150 mg/dL [facility] Comment:Desirable Triglyceri de: less than 150 mg/dLBorderline High Triglyceride 150-199 mg/dLHigh Triglyceride: 200-499 mg/dLVery High Triglyceride: greater than or equal to 5OO mg/dL Cholesterol 243(H) <200 mg/dL [facility] Comment:Desirable Cholestero l: less than 200 mg/dLBorderline High Cholesterol: 200-239 mg/dLHigh Cholesterol: greater than 239 mg/dL LDL Cholesterol Calculated 155(H) <100 mg/dL [facility] Comment:Desirable LDL: less than 100 mg/dLNear Optimal/Above Optimal LDL: 110- 129 mg/dLBorderline High LDL: 130-159 mg/dLHigh LDL: 160-189 mg/dLVery High LDL: greater than or equal to 190 mg/dL HDL Cholesterol 56 >40 mg/dL [facility] Comment:Desirable HDL: great er than 40 mg/dL Note: This HDL assay may give artificially low results in patients with liver disease. Blood Venous blood specimen / Unknown 08/08/2023 11:58 AM EDT 08/08/2023 12:01 PM EDT [facility] SORT LINE LAB BLOOD ORDERABLES Final Re sult [facility] [address] [place] [address] [phone] * HEPATITIS C AB W/REFL TO HCV RNA, QN, PCR (12/07/2021 10:21 AM EDT) HEPATITIS C ANTIBODY NON-REACT MELITA NON-REACT MELITA [facility] INDEX 0.10 <1.00 [facility] Comment: HCV antibody was non-reactive. There is no laboratory evidence of HCV infection. In most cases, no further action is required. However, if recent HCV exposure is suspected, a test for HCV RNA (test code 15714) is suggested. For additional information please refer to http://education.[employer]/faq/GFL01x1 (This link is being provided for informational/ educational purposes only.) 12/07/2021 10:2 1 AM EDT Farhana Walton SORT LINE HISTORICAL/NON ORDERABLE LABS Final Result [facility] [address] [place] [address], from Last 3 Months or Most Recently Relevant to Health Maintenance Insurance * Guarantor: Suha Buck Account Type Relation to Patient Date of Phone Billing Address Personal/Family Self 1960 [address] [place] [address] [employer] (O D-SNP) [place]AD[place] [phone] Care Teams Potato Peeling Machine Operator Relationship Specialty Start Date End Date Ileana Farley FNP [address] [place] [address] [place] [address] PCP - General Family Medicine 12/19/21
--- OUTSIDE RECORDS SUMMARY | 2025-02-25 15:00 | XMS_ITS | Encounter Summary ---
Author Organization [employer] Address [address] [place] [address] 7 [place] [address] Care Team Providers Care Blueprint Clerk Name Role Phone [facility] Primary Care Provider [phone] Reason for Visit * Reason Onset Date Comments Med Refill 06/01/2024 Encounter Details Date Type Department Care Team ([facility] st Contact Info) Description 06/01/2024 Refill [facility] [address] [place], [place] [phone] [facility] [address] [place] [address] Mild intermittent asthma without complication Social History [...] Next appointment 06/29/24. Levothyroxine was sent to [facility] #[id number] on 04/04/24 #90 with 1 refill. * Telephone Encounter - Will Giron - 06/01/2024 11:51 AM EST TC from pt requesting medication refill. Medications needing refill: albuterol (Ventolin HFA) 108 (90 Base) MCG/ACT inhaler levothyroxine (Synthroid, Levoxyl) 112 MCG tablet To be sent to: [facility]/pharmacy #[id number] - [address] documented in this encounter Plan of Treatment Upcoming Encounters Date Type Department Care Team (Late st Contact Info) Description 02/27/2025 3:00 PM EST Office Visit [facility] [address] [place], [place] [phone] Johnson Ileana [facility] [address] [place], [place] [phone] documented as of this encounter Visit Diagnoses Diagnosis Mild intermittent asthma without complication documented in this encounter Additional Health Concerns Assessment Noted Time PHQ-9 Depression Total Score: 0 05/30/19 25 2:37 PM EST documented as of this encounter Care Teams Blueprint Clerk Relationship Specialty Start Date End Date Ileana Farley FNP [address] [place] [address] PCP - General Family Medicine 12/19/21 documented as of this encounter
--- OUTSIDE RECORDS SUMMARY | 2025-02-25 15:00 | XMS_ITS | Encounter Summary ---
Author Organization [employer] Address [address] [place] [address] 7 [place] [address] Care Team Providers Care Dental Ceramist Name Role Phone [facility] Primary Care Provider Reason for Visit * Reason Onset Date Comments PT1 02/23/2023 PT1 Pending 02/23/2023 Encounter Details Date Type Department Care Team ([facility] st Contact Info) Description 02/23/2023 Telephone [facility] [address] [place], [place] [phone] [facility] [address] [place] [address] PT1; PT1 Pending Social History Tobacco Use [...] mail with approval or denial. PT-1 Request [id number] is Pending * Telephone Encounter - Tiara Polanco - 02/23/2023 11:46 AM EDT Tc from pt requesting PT1 transportation Date: 03/01/2023 Time: 2:00 Visits: n/a Address: [address] [place] [address] Facility: [facility] Dental Wheel Chair: no/cane Card Writer Hand Needed: no documented in this encounter Plan of Treatment Upcoming Encounters Date Type Department Care Team (Late st Contact Info) Description 02/27/2025 3:00 PM EST Office Visit [facility] [address] [place] [address] Ileana Farley FNP [address] [place] [address] documented as of this encounter Visit Diagnoses Not on filedocumented in this encounter Additional Health Concerns Assessment Noted Time PHQ-9 Depression Total Score: 0 09/04/19 23 3:34 PM EDT documented as of this encounter Care Teams Dental Ceramist Relationship Specialty Start Date End Date Ileana Farley FNP [address] [place] [address] PCP - General Family Medicine 12/19/21 documented as of this encounter
--- OUTSIDE RECORDS SUMMARY | 2025-02-25 15:00 | XMS_ITS | Clinical Summary ---
Author Organization [facility] Address [address] [place] [address] Phone Care Team Providers Care Wood Chopper Name Role Phone Pcp, Not Required Primary [...] MEDICARE PART A & B Care Teams Wood Chopper Relationship Specialty Start Date End Date Pcp, Not Required [address] [place] [address] PCP - General 03/19/24 Additional Source Comments The information contained in this document represents components of the legal health record. It is not the complete legal health record.[facility]
--- OUTSIDE RECORDS SUMMARY | 2025-02-25 15:00 | XMS_ITS | Encounter Summary ---
Author Organization [employer] Address [address] [place] [address] 7 [place] [address] Care Team Providers Care Motor Coach Bus Driver Name Role Phone [facility] Primary Care Provider [phone] Reason for Visit * Reason Onset Date Comments Referral 08/22/2023 Encounter Details Date Type Department Care Team ([facility] st Contact Info) Description 08/22/[address] [facility] [address] [place], [place] [phone] [facility] [address] [place], [place] [phone] Referral Social History Tobacco Use Types Packs/Day [...] a referral to [facility] for her R hand. Per OV note on 06/24/22 in HPI: Would like referral to [facility] Paronychia of finger of right hand Finger unremarkable on exam. Will rx bactroban as patient seems to be describing occasional episodes of paronychia. Referral placed to hand specialist per patient request However, this referral was processed [place] [facility] [place] (Dr. Garcia). Please review and place new referral to [facility] if agreeable. * Telephone Encounter - Tiara Polanco - 08/22/2023 8:03 AM EDT Tc from pt requesting a referral for [facility] stated PCP already know about hand conditions, any questions contact pt. documented in this encounter Plan of Treatment Upcoming Encounters Date Type Department Care Team (Late st Contact Info) Description 02/27/2025 3:00 PM EST Office Visit [facility] [address] [place] [address] Jackson, Ileana, [facility] [address] [place] [address] documented as of this encounter Visit Diagnoses Not on filedocumented in this encounter Additional Health Concerns Assessment Noted Time PHQ-9 Depression Total Score: 0 09/04/19 23 3:34 PM EDT documented as of this encounter Care Teams Motor Coach Bus Driver Relationship Specialty Start Date End Date Ileana Farley FNP [address] [place] [address] PCP - General Family Medicine 12/19/21 documented as of this encounter
--- OUTSIDE RECORDS SUMMARY | 2025-02-25 15:00 | XMS_ITS | Encounter Summary ---
Author Organization [employer] Address [address] [place] [address] 7 [place] [address] Care Team Providers Care Wood Pole Treater Name Role Phone [facility] Primary Care Provider [phone] Reason for Visit * Reason Comments Med Change Request Encounter Details Date Type Department Care Team ([facility] st Contact Info) Description 10/10/2022 Refill [facility] MEDICINE [address] [place], [place] [phone] [facility] [address] [place] [address] Abdominal bloating Social History Tobacco Use Types [...] informed of situation and med sent to [facility] pharmacy instead. Pt states she will try to have someone bring her to cloth picker the med or have someone pick it up for her. I f she cannot find transportation or someone to do the favor she will come in for visit on 10/21/22 and pick it up then. * Telephone Encounter - FAROOQ Michaud - 10/13/2022 4:57 PM EDT Thank you for checking! Med sent to [facility] pharmacy. Please call to inform pt. * Telephone Encounter - Cielo Richardson RN - 10/13/2022 3:54 PM EDT Placed call to [facility] pharmacy regarding alternatives as [facility] would [...] Description 02/27/2025 3:00 PM EST Office Visit [facility] [address] [place] [address] Ileana Farley FNP [address] [place] [address] documented as of this encounter Visit Diagnoses Diagnosis Abdominal bloating Flatulence, eructation, and gas pain documented in this encounter Additional Health Concerns Assessment Noted Time PHQ-9 Depression Total Score: 0 09/04/19 23 3:34 PM EDT documented as of this encounter Care Teams Wood Pole Treater Relationship Specialty Start Date End Date Ileana Farley FNP [address] [place] [address] PCP - General Family Medicine 12/19/21 documented as of this encounter
--- OUTSIDE RECORDS SUMMARY | 2025-02-25 15:00 | XMS_ITS | Encounter Summary ---
Author Organization [employer] Address [address] [place] [address] 7 [place] [address] Care Team Providers Care 6Th Grade Teacher Name Role Phone [facility] Primary Care Provider [phone] Reason for Visit * Reason Onset Date Comments Nurse Triage 07/13/2023 Encounter Details Date Type Department Care Team ([facility] st Contact Info) Description 07/13/2023 Telephone [facility] [address] [place], [place] [phone] [facility] [address] [place], [place] [phone] Nurse Triage Social History Tobacco Use Types [...] if it is effective. Apt with PCP [facility] 07/27/23 @ 330pm . Insurance is verified [...] Description 02/27/2025 3:00 PM EST Office Visit [facility] [address] [place] [address] Ileana Farley FNP [address] [place] [address] documented as of this encounter Visit Diagnoses Not on filedocumented in this encounter Additional Health Concerns Assessment Noted Time PHQ-9 Depression Total Score: 0 09/04/19 23 3:34 PM EDT documented as of this encounter Care Teams 6Th Grade Teacher Relationship Specialty Start Date End Date Ileana Farley FNP [address] [place] [address] PCP - General Family Medicine 12/19/21 documented as of this encounter
== END 2025-02-25 18:37 | disposition home or self-care (01) ==
LOC: HO.HGI 11:46
PROVIDERS: PCP Registered Nurse; Visit Provider Internal Medicine
DX: K21.9 Gastro-esophageal reflux disease without esophagitis (principal); E66.9 Obesity, unspecified; R14.0 Abdominal distension (gaseous)
CPT/HCPCS: 99214